=== PATIENT | female | born 1965 | race Caucasian/White ===

== ENCOUNTER → 2017-04-27 | Outpatient (CLI) | payer BC ==
[2017-04-27 10:49] LABS: Appearance,Urine Cloudy (Clear); Bilirubin,Urine Negative (Negative); Blood,Urine Small (Negative); Color,Urine Yellow; Glucose,Urine (UA) Negative (Negative); Ketones,Urine Negative (Negative); Leukocyte Esterase,Urine Large (Negative); Mucus,Urine Rare /hpf; Nitrite,Urine Negative (Negative); PH, Urine 5.5 (5.0-8.0); Protein,Urine Negative (Negative); RBC,Urine 6 /hpf (0-5); Squamous Epithelial Cell,Urine 7 /hpf (0-4); Urobilinogen,Urine <2.0 mg/dL (<2.0); WBC,Urine 10 /hpf (0-5)
--- NOTE | 2017-04-27 11:19 | WWHP ---
[facility] - HISTORY AND PHYSICAL CHIEF COMPLAINT: The patient is here for her routine gynecologic exam and mammogram. HPI: This is a 51-year-old G0 with a LMP of 04/17/2017. The patient's states her periods have become less frequent. Prior to her LMP, she had been amenorrheic for about 6 months. Prior to that she was having menses about once per month. She states her hot flashes have increased during the past year. She has also been experiencing some pelvic pressure around the area of her bladder. She also has to urinate up to 5 times per night. She denies dysuria. She denies significant urinary urgency after voiding. PAST MEDICAL HISTORY: Migraine headaches and anxiety. MEDICATIONS: 1. Zoloft 50 mg daily. 2. Xanax 0.5 mg 2 times per week. 3. Butalbital p.r.n. for migraine headaches. ALLERGIES: To aspirin and medical dye. PAST SURGICAL HISTORY: Nasal surgery in 1998, arthroscopic knee surgeries in 2007 and 2008 and 2015. 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 She has no other history of STDs. SOCIAL HISTORY: She denies tobacco and drug use and has 0 to 1 alcohol-containing drinks per month. 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 FAMILY HISTORY: Unchanged from 03/17/2016 H and P. REVIEW OF SYSTEMS: She has gained about 11 pounds over the last year. She denies respiratory, cardiac or GI problems. PHYSICAL EXAM: Blood pressure 100/67, height 5 feet 8 inches, weight 201 pounds. BMI 31. Temperature 97.7, pulse 67. This is a well-developed, well-nourished, white female, who is alert and oriented x3, in no acute distress. HEENT is within normal limits. NECK: Supple without mass or thyromegaly. CHEST AND LUNGS: Clear to auscultation. HEART: Regular rate and rhythm. Breasts are without masses or discharge. Axillary exam is negative for adenopathy. BACK: Negative for CVA tenderness. ABDOMEN: Soft, nontender, without palpable masses. PELVIC EXAM: Normal external genitalia. Cervix and vagina appear normal. There is no evidence of prolapse. The uterus is mid position, nongravid size and nontender. There are no palpable adnexal masses or tenderness. RECTAL EXAM: Negative for mass or tenderness and is negative for occult blood. EXTREMITIES: Nontender. IMPRESSION: 1. 51-year-old female with normal gynecologic exam. 2. History of primary infertility. 3. Perimenopause with oligomenorrhea and vasomotor symptoms. 4. Pelvic discomfort in the area of her bladder without any significant physical findings at this time. PLAN: 1. Pap smear was performed. 2. Self breast examination was discussed. 3. Mammogram will be done today. 4. UA and C&S will be obtained today. 5. The patient will continue to keep a menstrual calendar and call if she is having menstrual problems. 6. Osteoporosis prevention was discussed. 7. She will return in 1 year. MMODL / IJN: [id number] /
--- NOTE | 2017-04-28 09:35 | MM ---
Reason for exam: screening (asymptomatic). Last mammogram was performed 1 year and 1 month ago. History: Family history of breast cancer in mother. Physical Findings: A clinical breast exam by your physician is recommended on an annual basis and results should be correlated with mammographic findings. MG Screening Mammo w CAD Bilateral CC and MLO view(s) were taken. Prior study comparison: March 17, 2016, bilateral MG screening mammo w CAD. August 01, 2015, right breast MG diagnostic mammo RT w CAD. The breast tissue is heterogeneously dense. This may lower the sensitivity of mammography. Focal asymmetry increased from prior on right CC view. This finding is changed when compared with previous exams. ASSESSMENT: Incomplete: need additional imaging evaluation, BI-RAD 0 RECOMMENDATION: Special view mammogram of the right breast. If lesion persists on supplemental views, image directed ultrasound is recommended. [facility] will attempt to contact patient to return for supplemental views and ultrasound if indicated.
== END | disposition home or self-care (01) ==
LOC: WWCWWP 08:58
PROVIDERS: ATTEND Obstetrics & Gynecology
DX: Z12.31 Encounter for screening mammogram for malignant neoplasm of breast (principal); R10.2 Pelvic and perineal pain
CPT/HCPCS: 77067; 81001; 87086

== ENCOUNTER → 2017-04-29 | Outpatient (CLI) | payer BC ==
--- NOTE | 2017-04-30 09:27 | MM ---
Reason for exam: additional evaluation requested from abnormal screening. Last mammogram was performed less than 1 month ago. History: Family history of breast cancer in maternal aunt at age 50 and breast cancer in mother at age 50. Benign cyst aspiration, 2012. Physical Findings: Nurse Summary: 1cm nodule in the right breast at 3 o'clock, 4 o'clock and 6 o'clock, a 1.5cm in the left breast at 6 o'clock (nurse mj). MG Work Up Mamm w CAD RT Spot compression CC, spot compression MLO, and LM view(s) were taken of the right breast. Prior study comparison: April 27, 2017, bilateral MG screening mammo w CAD. March 17, 2016, bilateral MG screening mammo w CAD. The breast tissue is heterogeneously dense. This may lower the sensitivity of mammography. There is no discrete abnormality at BB marker palpable abnormalities. Ultrasound palpable abnormalities. No significant new findings when compared with previous films. These results were verbally communicated with the patient and result sheet given to the patient on 04/29/17. ASSESSMENT: Benign, BI-RAD 2 RECOMMENDATION: Return to routine screening mammogram schedule for both breasts. Manage on a clinical basis with regard to palpable abnormalities. Follow up ultrasound of the right breast in 6 months.
--- NOTE | 2017-04-30 10:05 | USB ---
Reason for exam: additional evaluation requested from abnormal screening. History: Family history of breast cancer in maternal aunt at age 50 and breast cancer in mother at age 50. Benign cyst aspiration, 2013. US Breast Workup Limited SHANELL Right breast ultrasound demonstrates a 0.5 x 0.2 x 0.4cm oval, cystic lesion at 2 o'clock, a 0.3 x 0.2 x 0.3cm lesion too small to characterize at 3 o'clock and a 0.5 x 0.4 x 0.5cm mixed lesion at 6 o'clock for which a short term follow up is recommended. Left breast ultrasound demonstrates a 0.3 x 0.3 x 0.3cm lesion too small to characterize at 3 o'clock and a 0.4 x 0.2 x 0.3cm lesion too small to characterize at 6 o'clock. These results were verbally communicated with the patient and result sheet given to the patient on 04/29/17. ASSESSMENT: Probably benign, BI-RAD 3 RECOMMENDATION: Ultrasound of the right breast in 6 months.
== END | disposition home or self-care (01) ==
LOC: RADMAMWWP 13:12
PROVIDERS: ATTEND Obstetrics & Gynecology
DX: R92.8 Other abnormal and inconclusive findings on diagnostic imaging of breast (principal)
CPT/HCPCS: 77065

== ENCOUNTER → 2017-10-04 | Outpatient (CLI) | payer BC ==
--- NOTE | 2017-10-04 08:39 | US ---
EXAMINATION TYPE: US abdomen complete DATE OF EXAM: 10/04/2017 COMPARISON: NONE CLINICAL HISTORY: R10.84 gen abd pain. Indigestion, bloating, nausea, RUQ pain x 6 weeks EXAM MEASUREMENTS: Liver Length: 17.2 cm Gallbladder Wall: 0.3 cm CBD: 0.34 cm Spleen: 10.2 cm Right Kidney: 10.1 x 4.4 x 4.7 cm Left Kidney: 10.0 x 6.5 x 5.2 cm Technical limitations due to large amount of overlying bowel content Pancreas: limited evaluation due to overlying bowel content, possible duct = 0.4cm Liver: attenuating, heterogeneous, slightly prominent in size. Normal less than 15.5 cm. Findings ca n be related to mild fatty infiltration liver. Gallbladder: no evidence of stones. Gallbladder wall is thickened. Evidence for sonographic Shirley's sign: no CBD: appears wnl Spleen: appears wnl Right Kidney: no evidence of hydronephrosis Left Kidney: no evidence of hydronephrosis Upper IVC: appears wnl Abd Aorta: visualized portions appear wnl IMPRESSION: 1. Mild hepatomegaly with mild fatty infiltration liver. 2. Thickened gallbladder wall. No cholelithiasis or pericholecystic fluid is evident.
== END ==
LOC: RADUSWWP 06:53
PROVIDERS: ATTEND Internal Medicine
DX: K76.0 Fatty (change of) liver, not elsewhere classified (principal); K82.9 Disease of gallbladder, unspecified; Z88.6 Allergy status to analgesic agent; Z88.1 Allergy status to other antibiotic agents
CPT/HCPCS: 76700

== ENCOUNTER → 2017-11-05 | Outpatient (CLI) | payer BC ==
--- NOTE | 2017-11-08 09:00 | USB ---
Reason for exam: follow-up at short interval from prior study. History: Family history of breast cancer in maternal aunt at age 50 and breast cancer in mother at age 50. Benign cyst aspiration, 2013. Physical Findings: Nurse did not find any significant physical abnormalities on exam. US Breast RT Right complete breast ultrasound includes all four quadrants, the retroareolar region and axilla. Finding demonstrates several cystic lesions measuring 0.3 x 0.3 x 0.2cm at 1 o'clock, 0.4 x 0.4 x 0.2cm at 2 o'clock, 0.5 x 0.4 x 0.2cm at 3 o'clock, 0.3 x 0.3 x 0.2cm at 5 o'clock, 0.4 x 0.3 x 0.2cm at 10 o'clock and 0.4 x 0.4 x 0.2cm at 11 o'clock. These results were verbally communicated with the patient and result sheet given to the patient on 11/05/17. ASSESSMENT: Benign, BI-RAD 2 RECOMMENDATION: Return to routine screening mammogram schedule for both breasts.
== END | disposition home or self-care (01) ==
LOC: RADUSWWP 15:28
PROVIDERS: ATTEND Obstetrics & Gynecology
DX: R92.8 Other abnormal and inconclusive findings on diagnostic imaging of breast (principal)

== ENCOUNTER → 2018-02-16 | Outpatient (CLI) | payer BC ==
[2018-02-16 09:24] VITALS: BP 115/57; PULSE 84; TEMP 96.5; BMI 31.0
--- NOTE | 2018-02-16 10:19 | P.HPOB ---
History of Present Illness H&P Date: 02/16/18 Chief Complaint: The patient is here for her routine gynecologic exam. This is a 52-year-old G0 with an LMP of 04/19/2017. The patient states her hot flashes seem to be increasing and they can be up to every 20 minutes. She is complaining of some urinary frequency associated with bladder pressure and urgency. She is otherwise without complaints. Review of Systems She is getting about 3 pounds over the last 10 months. She denies respiratory, cardiac, or G.I. problems. : urinary frequency and bladder pressure with urgency as in the HPI.. She also states her urine can appear orange in color at times. Past Medical History Past Medical History: GERD/Reflux Additional Past Medical History / Comment(s): hx. heart murmur, migraine headaches, has growth on spleen-dr monitoring, Reynaud's, Sjogren's. PAST EDITING INTERN HISTORY: she has a long history of primary infertility and was treated for chlamydia in 2001 she has no other history of STDs. History of Any Multi-Drug Resistant Organisms: None Reported Past Surgical History: Orthopedic Surgery (Multiple arthroscopic knee surgeries) Additional Past Surgical History / Comment(s): nasal fx. repair, arthroscopy knees. Colonoscopy 2014. 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 - Past Family History Mother Family Medical History: Cancer (Breast, bladder, uterine, and ovarian cancer) Father Family Medical History: Cancer (Bladder cancer) Brother(s) Family Medical History: Diabetes Mellitus Additional Family Medical History / Comment(s): A cousin had pancreatic cancer. Medications and Allergies Home Medications Medication Instructions Recorded Confirmed Type ALPRAZolam [Xanax] mg PO Q24HR 02/16/18 History Ezetimibe [Zetia] PO DAILY 02/16/18 History Hydrocodone/Acetaminophen [[place] PO Q4-6H 02/16/18 History 10-325 Tablet] Ibuprofen [Motrin] PO Q8HR 02/16/18 History Naproxen Sodium [Aleve] PO PRN 02/16/18 History Ondansetron [Zofran] PO PRN 02/16/18 History Ranitidine HCl [Zantac] 150 mg PO BID 02/16/18 02/16/18 History Sertraline [Zoloft] PO DAILY 02/16/18 History Soy Isofla/Blk Cohosh/Mag Bark HS 02/16/18 History [Estroven 155 mg Capsule] Allergies Allergy/AdvReac Type Severity Reaction Status Date / Time aspirin Allergy swelling,ringing Verified 02/16/18 09:20 in ears egg Allergy Swelling Verified 02/16/18 09:20 Iodinated Contrast- Oral and Allergy Rash/Hives Verified 02/16/18 09:20 IV Dye [Iodinated Contrast Media - IV Dye] Exam Vital Signs Temp Pulse BP 02/16/18 09:20 96.5 F L 84 115/57 Intake and Output 02/15/18 02/16/18 02/16/18 22:59 06:59 14:59 Other: Weight 92.533 kg Height 5'8", weight 204 pounds, BMI 31.0. This is a well-developed well-nourished white female who is alert and oriented times 3 in no acute distress. HEENT: Within normal limits. NECK: Supple without mass or thyromegaly. CHEST AND LUNGS: Clear to auscultation. HEART: Regular rate and rhythm. BREASTS: Are without mass or discharge. AXILLARY EXAM: Negative for adenopathy. BACK: Negative for CVA tenderness. ABDOMEN: Soft, nontender, without palpable masses. PELVIC EXAM: Normal external genitalia. Cervix and vagina appear normal. There is no unusual discharge. There is no evidence of prolapse. The uterus is midposition, nongravid size and nontender. There are no palpable adnexal masses or tenderness. RECTAL EXAM: rectovaginal exam is negative for mass or tenderness and is negative for occult blood. EXTREMITIES: Nontender. IMPRESSION: 1. 52-year-old perimenopausal female with oligomenorrhea and these are motor symptoms with normal gynecologic exam. 2. Urinary symptoms including urinary frequency and bladder pressure with urgency. PLAN: 1. Pap smear was deferred since she had a normal one less than 2 years ago. 2. Self breast awareness was discussed with the patient. 3. Screening mammogram will be due in April 2018. 4. Clean catch midstream urinalysis and culture with sensitivity has been obtained. 5. I have recommended a yearly pelvic ultrasound because of her mother's family history and the order slip was given to the patient for this. 6. She believes she is due for a colonoscopy since she was told to have done after 3 years. She will contact Dr. Cortes's office for this. 7. I recommended that she established with a urologist. This is because of her parents history of bladder cancer. She states she will consider establishing with Dr. Fitzgerald, her parents urologist to determine if she should be doing anything because of her family history. 8. She'll keep up menstrual calendar and call if she is having menstrual problems or if she has any vaginal bleeding after 12 months of amenorrhea. 9. She will return in one year.
[2018-02-16 14:44] LABS: Appearance,Urine Clear (Clear); Bilirubin,Urine Negative (Negative); Blood,Urine Negative (Negative); Color,Urine Yellow; Glucose,Urine (UA) Negative (Negative); Ketones,Urine Negative (Negative); Leukocyte Esterase,Urine Negative (Negative); Nitrite,Urine Negative (Negative); Protein,Urine Trace (Negative); Specific Gravity,Urine 1.023 (1.001-1.035); Urobilinogen,Urine <2.0 mg/dL (<2.0)
== END | disposition home or self-care (01) ==
LOC: WWCWWP 08:48
PROVIDERS: ATTEND Obstetrics & Gynecology
DX: R35.0 Frequency of micturition (principal); R39.15 Urgency of urination
CPT/HCPCS: 81003; 87086

== ENCOUNTER → 2018-03-11 | Outpatient (CLI) | payer BC ==
--- NOTE | 2018-03-11 15:27 | US ---
EXAMINATION TYPE: US pelvis complete transvag DATE OF EXAM: 03/11/2018 COMPARISON: Prior pelvic ultrasound February 08, 2015 CLINICAL HISTORY: Z80.41 HX OVARIAN CYST. Family history of ovarian cancer, spotting, history of fibr oids TECHNIQUE: Transvaginal (TV) and Transabdominal (TA) . Transabdominal sonographic images of the pel vis were acquired. Transvaginal sonographic images were medically necessary to better assess the fol lowing anatomy: uterus and ovaries Date of LMP: unknown EXAM MEASUREMENTS: Uterus: 7.4 x 4.4 x 4.6 cm Endometrial Stripe: 0.3 cm Right Ovary: unable to visualize Left Ovary: unable to visualize 1. Uterus: Retroverted heterogeneous in appearance, fibroids noted with largest = 1.9 x 2.0 x 1.8cm 2. Endometrium: appears wnl as visualized 3. Right Ovary: Obscured by overlying bowel gas 4. Left Ovary: Obscured by overlying bowel gas 5. Bilateral Adnexa: appears wnl 6. Posterior cul-de-sac: wnl Heterogeneous retroverted uterus is seen with lobulation and somewhat ill-defined heterogeneous poste rior intramural and subserosal fibroids marked by technologist measuring up to 2.0 cm in size. IMPRESSION: Heterogeneous probable fibroid uterus. Suspected fibroid lesions can be better characteri zed and described with pelvic MRI if desired.
--- NOTE | 2018-03-15 13:03 | P.PN ---
Progress Note - Text Progress Note Date: 03/15/18 OUTPATIENT FOLLOW-UP NOTE TEST(S)/RESULTS: pelvic ultrasound on 03/11/2018 shows a small uterine fibroids approximate 2 cm size. Bilateral adnexa is within normal limits. METHOD OF NOTIFICATION: the patient was notified by phone. PATIENT COMMENTS: the patient was not aware of the small uterine fibroid. DIAGNOSIS: small uterine fibroids and no evidence of ovarian mass. DISCUSSION: we discussed the benign nature of uterine fibroids. No further workup is needed for this at this time. PLAN: yearly pelvic ultrasound because of her family history of ovarian cancer in her mother. She will return in one year for her annual well woman exam.
== END | disposition home or self-care (01) ==
LOC: RADUSWWP 14:06
PROVIDERS: ATTEND Obstetrics & Gynecology
DX: Z12.73 Encounter for screening for malignant neoplasm of ovary (principal); Z80.41 Family history of malignant neoplasm of ovary
CPT/HCPCS: 76830; 76856

== ENCOUNTER → 2018-04-09 | Outpatient (CLI) | payer BC ==
--- NOTE | 2018-04-12 07:44 | MM ---
Reason for exam: screening (asymptomatic). Last mammogram was performed 11 months ago. History: Family history of breast cancer in maternal aunt at age 50 and breast cancer in mother at age 50. Benign cyst aspiration, 2013. Physical Findings: A clinical breast exam by your physician is recommended on an annual basis and results should be correlated with mammographic findings. MG 3D Screening Mammo W/Cad Bilateral CC and MLO view(s) were taken. XCCL view(s) were taken of the left breast. Prior study comparison: April 29, 2017, right breast MG work up mamm w CAD RT. April 27, 2017, bilateral MG screening mammo w CAD. The breast tissue is heterogeneously dense. This may lower the sensitivity of mammography. Typically benign punctate calcifications superior left breast. No significant changes when compared with prior studies. ASSESSMENT: Negative, BI-RAD 1 RECOMMENDATION: Routine screening mammogram of both breasts in 1 year.
== END ==
LOC: RADMAMWWP 08:53
PROVIDERS: ATTEND Obstetrics & Gynecology
DX: Z12.31 Encounter for screening mammogram for malignant neoplasm of breast (principal)
CPT/HCPCS: 77063; 77067

== ENCOUNTER → 2018-12-27 | Outpatient (CLI) | payer BC ==
[2018-12-28 01:28] LABS: T4, Free (Free Thyroxine) 1.1 ng/dL (0.80-1.80)
== END | disposition home or self-care (01) ==
LOC: LABWHC1 16:44
PROVIDERS: ATTEND Nurse Practitioner Family
DX: R41.3 Other amnesia (principal)
CPT/HCPCS: 36415; 82607; 84439; 84443; 84481

== ENCOUNTER → 2020-03-28 | Outpatient (CLI) | payer BC ==
[2020-03-28 12:54] VITALS: BP 106/69; PULSE 93; RESP 18; TEMP 98.5
--- NOTE | 2020-03-28 13:33 | P.GSHP ---
History of Present Illness H&P Date: 03/28/20 Chief Complaint: Abnormal left breast mammogram Sade is a 54-year-old white female seen in consultation for Dr. Paloma Aldridge regarding a mammographic abnormality in her left breast. She underwent a bilateral mammogram on 03/13/2020 which revealed a nodular density in the outer margin of the left breast. A diagnostic mammogram of the left breast was performed on . The questioned far posterior and lateral asymmetric density was not clearly reproduced and a precautionary six-month follow-up was recommended. The patient does not feel anything in her breast. She is not complaining of any nipple discharge or skin changes. She has no history of any trauma or infection in the breast. Caffeine: rare smoke: none Theophylline: Daily soy milk: twice a week Family history: mother: breast cancer 6 times, from bladder cancer, ovarian cancer, uterine cancer (did not have genetic testing done) father: bladder cancer maternal aunt: ovarian cancer at 40 cousin maternal side: at 21 with cancer ? 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 Plantars fasciitis Carpal tunnel disease Connective tissue disease anxiety/depression Sjogren syndrome Overnight syndrome Migraines insomnia high cholesterol Social History: smoke: none alcohol: rare drugs: none - Constitutional Comment: hot flashes Constitutional: Denies chills, Denies fever - EENT Eyes: denies blurred vision, denies pain Ears: bilateral: tinnitus, deny: decreased hearing Ears, nose, mouth and throat: Reports headache, Denies sore throat - Breasts Breasts: bilateral: as per HPI - Cardiovascular Cardiovascular: Denies chest pain, Denies shortness of breath - Respiratory Respiratory: Denies cough, Denies 7 - Gastrointestinal Gastrointestinal: Denies abdominal pain, Denies diarrhea, Denies nausea, Denies vomiting - Genitourinary (Female) Genitourinary: Denies dysuria, Denies hematuria - Menstruation Menstruation: Reports postmenopausal - Musculoskeletal Musculoskeletal: Reports as per HPI - Integumentary Integumentary: Denies pruritus, Denies rash - Neurological Neurological: Reports numbness, Denies weakness - Psychiatric Psychiatric: Reports anxiety, Reports depression - Endocrine Comment: weight gain Endocrine: Reports weight change - Hematologic/Lymphatic Comment: none - Allergic/Immunologic Allergic/Immunologic: Reports seasonal allergies Past Medical History Past Medical History: GERD/Reflux Additional Past Medical History / Comment(s): hx. heart murmur, migraine headaches, has growth on spleen-dr monitoring, Reynaud's, Sjogren's. 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 History of Any Multi-Drug Resistant Organisms: None Reported Past Surgical History: Orthopedic Surgery Additional Past Surgical History / Comment(s): nasal fx. repair, arthroscopy knees. Colonoscopy 2015. Past Anesthesia/Blood Transfusion Reactions: No Reported Reaction Past Psychological History: Anxiety Smoking Status: Never smoker Past Alcohol Use History: Rare Past Drug Use History: None Reported - Past Family History Mother Family Medical History: Cancer Father Family Medical History: Cancer Brother(s) Family Medical History: Diabetes Mellitus Additional Family Medical History / Comment(s): A cousin had pancreatic cancer. Medications and Allergies Home Medications Medication Instructions Recorded Confirmed Type ALPRAZolam [Xanax] mg PO Q24HR 02/16/18 History Ezetimibe [Zetia] PO DAILY 02/16/18 History Hydrocodone/Acetaminophen [[place] PO Q4-6H 02/16/18 History 10-325 Tablet] Ranitidine HCl [Zantac] 150 mg PO BID 02/16/18 02/16/18 History Sertraline [Zoloft] PO DAILY 02/16/18 History ARIPiprazole [Abilify] 5 mg PO DAILY 03/28/20 03/28/20 History Baclofen [Lioresal] 20 mg PO TID 03/28/20 03/28/20 History Diclofenac Sodium [Diclofenac 100 mg PO DAILY 03/28/20 03/28/20 History Sodium ER] Fluticasone Propionate [Flonase 1 spray EA NOSTRIL DAILY PRN 03/28/20 03/28/20 History Allergy Relief] Meloxicam [Mobic] 15 mg PO DAILY 03/28/20 03/28/20 History NIFEdipine [NIFEdipine ER] 30 mg PO DAILY 03/28/20 03/28/20 History Phentermine HCl [Adipex-P] 37.5 mg PO [id number] 03/28/20 03/28/20 History Pilocarpine HCl [Salagen] 5 mg PO TID 03/28/20 03/28/20 History Tobra-Dexamet 0.3-0.1% Eye Vy 2 drops BOTH EYES Q6H 03/28/20 03/28/20 History [Tobradex Ophth Susp] Allergies Allergy/AdvReac Type Severity Reaction Status Date / Time aspirin Allergy swelling,ringing Verified 03/28/20 12:51 in ears azithromycin Allergy Unknown Unverified 03/28/20 12:51 [From Zithromax Z-Shola] egg Allergy Swelling Verified 03/28/20 12:51 Iodinated Contrast Media Allergy Rash/Hives Verified 03/28/20 12:51 [Iodinated Contrast Media - IV Dye] Surgical - Exam Vital Signs Temp Pulse Resp BP Pulse Ox 98.5 F 93 18 106/69 100 03/28/20 12:52 03/28/20 12:52 03/28/20 12:52 03/28/20 12:52 03/28/20 12:52 BMI 32.1 - General well developed, well nourished, no distress - Eyes normal ocular movement - ENT normal nares - Neck trachea midline - Respiratory normal respiratory effort, clear to auscultation - Cardiovascular Rhythm: regular Heart Sounds: normal: S1, S2 - Abdomen Abdomen: soft, non tender, no guarding, no rigid, no rebound - Integumentary normal turgor - Neurologic no disoriented, no combative - Musculoskeletal uses a leg brace and a cane - Psychiatric oriented to time, oriented to person, oriented to place, speech is normal, memory intact breast exam: BRA: 40C inspection: bilateral ptosis grade 1 Palpation: Right breast: Multi-positional exam fibrocystic changes no dominant masses or nodules of concern Right axilla: No adenopathy of concern Left breast: Fibrocystic changes a multi-positional exam no dominant masses or nodules of concern Left axilla: No adenopathy of concern Results Mammogram performed on [id number] questionable nodule in the left breast this was performed repeated as a diagnostic mammogram on [id number] this was felt to be probably benign and six-month follow-up of the left breast was recommended Assessment and Plan Assessment: Impression: fatty liver 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 Repeat left breast mammogram in 6 months 2. Patient will call sooner if she notes any thing of concern 3. Consider genetic counseling secondary to strong family history of cancer we will give her the information to set this appointment up CC: Dr. Aldridge I have personally reviewed her mammograms with Dr. Farah from radiology. At this point we do not see any specific lesion which would warrant interventional biopsy. I talked to her regarding her strong family history and recommended genetic counseling. She was provided information to contact, this cancer [place] genetic counseling service. She will make that decision. If she has any questions or concerns she will call us sooner otherwise I'll see her in 6 months. encounter 30 minutes, > 50% of time in planning and counselling
== END | disposition home or self-care (01) ==
LOC: WWCWWP 12:10
PROVIDERS: ATTEND Surgery
DX: Z53.9 Procedure and treatment not carried out, unspecified reason (principal)

== ENCOUNTER → 2020-09-16 | Outpatient (CLI) | payer MEDICARE ==
--- NOTE | 2020-09-16 13:26 | MM ---
Reason for exam: follow-up at short interval from prior study. Last mammogram was performed 2 years and 5 months ago. History: Patient is postmenopausal. Family history of breast cancer in maternal aunt at age 50 and breast cancer in mother at age 50. Benign cyst aspiration of the left breast, 2012. Physical Findings: Nurse did not find any significant physical abnormalities on exam. MG 3D Diag Mammo W/Cad LT CC, MLO, and XCCL view(s) were taken of the left breast. Prior study comparison: April 09, 2018, bilateral MG 3d screening mammo w/cad. April 29, 2017, right breast MG work up mamm w CAD RT. The breast tissue is heterogeneously dense. This may lower the sensitivity of mammography. Focal density left lateral breast at posterior depth. Probably benign asymmetry/overlap tissues. These results were verbally communicated with the patient and result sheet given to the patient on 09/16/20. ASSESSMENT: Probably benign, BI-RAD 3 RECOMMENDATION: Follow-up diagnostic mammogram of both breasts in 6 months. Back on schedule.
== END | disposition home or self-care (01) ==
LOC: RADMAMWWP 07:04
PROVIDERS: ATTEND Surgery
DX: R92.8 Other abnormal and inconclusive findings on diagnostic imaging of breast (principal); Z78.0 Asymptomatic menopausal state; Z80.3 Family history of malignant neoplasm of breast
CPT/HCPCS: 77065; G0279; 77061

== ENCOUNTER → 2020-09-20 | Outpatient (CLI) | payer BC ==
[2020-09-20 11:54] VITALS: BP 101/70; PULSE 112; RESP 16; TEMP 98
--- NOTE | 2020-09-20 12:03 | P.PN ---
Subjective Progress Note Date: 09/20/20 Principal diagnosis: Surveillance fibrocystic breast changes Sade is a 54-year-old white female seen in consultation for Dr. Paloma Aldridge regarding a mammographic abnormality in her left breast. She underwent a bilateral mammogram on 03/13/2020 which revealed a nodular density in the outer margin of the left breast. A diagnostic mammogram of the left breast was performed on [id number]. The questioned far posterior and lateral asymmetric density was not clearly reproduced and a precautionary six-month follow-up was recommended. The patient does not feel anything in her breast. She is not complaining of any nipple discharge or skin changes. She has no history of any trauma or infection in the breast. A repeat left breast mammogram was done on 09-16-20 which noted focal density left lateral breast posterior depth and felt to be BENIGN BIRAD 3. She had genetic testing performed on [id number] which was negative. Aneta model: 2.1% 5 year risk to develop breast cancer Beba Bhardwaj at 32.072% lifetime risk Gus model 7.32% lifetime risk Have discussed chemoprevention at this time the patient is not interested. Caffeine: rare smoke: none Theophylline: Daily soy milk: twice a week Family history: mother: breast cancer 6 times, from bladder cancer, ovarian cancer, uterine cancer (did not have genetic testing done) father: bladder cancer maternal aunt: ovarian cancer at 40 cousin maternal side: at 21 with cancer ? 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 Plantars fasciitis Carpal tunnel disease Connective tissue disease anxiety/depression Sjogren syndrome Overnight syndrome Migraines insomnia high cholesterol Social History: smoke: none alcohol: rare drugs: none - Constitutional Comment: hot flashes Constitutional: Denies chills, Denies fever - EENT Eyes: denies blurred vision, denies pain Ears: bilateral: tinnitus, deny: decreased hearing Ears, nose, mouth and throat: Reports headache, Denies sore throat - Breasts Breasts: bilateral: as per HPI - Cardiovascular Cardiovascular: Denies chest pain, Denies shortness of breath - Respiratory Respiratory: Denies cough - Gastrointestinal Gastrointestinal: Denies abdominal pain, Denies diarrhea, Denies nausea, Denies vomiting - Genitourinary (Female) Genitourinary: Denies dysuria, Denies hematuria - Menstruation Menstruation: Reports postmenopausal - Musculoskeletal Musculoskeletal: Reports as per HPI - Integumentary Integumentary: Denies pruritus, Denies rash - Neurological Neurological: Reports numbness, Denies weakness - Psychiatric Psychiatric: Reports anxiety, Reports depression - Endocrine Comment: weight gain Endocrine: Reports weight change - Hematologic/Lymphatic Comment: none - Allergic/Immunologic Allergic/Immunologic: Reports seasonal allergies Objective - Exam BMI 31.6 - Constitutional General appearance: Present: average body habitus - EENT Eyes: Present: EOMI ENT: Present: hearing grossly normal - Neck Neck: Present: normal ROM - Respiratory Respiratory: bilateral: CTA - Cardiovascular Rhythm: regular Heart sounds: normal: S1, S2 - Gastrointestinal General gastrointestinal: Present: soft - Integumentary Integumentary: Present: normal turgor - Musculoskeletal Musculoskeletal Comment(s): uses a cane - Psychiatric Psychiatric: Present: A&O x's 3, appropriate affect, intact judgment & insight - Additional findings Additional findings: Breast examination: BRA: 40D inspection: Grade 2 ptosis bilateral Palpation: Right breast: Dense breast, fibrocystic changes, no dominant masses or nodules of concern Right axilla: No adenopathy of concern Left breast: Dense breast, fibrocystic changes, no dominant masses or nodules of concern Left axilla: No adenopathy of concern Assessment and Plan Assessment: Impression: fatty liver 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 Bilateral mammogram in 6 months with physician exam at that time 2. Patient given option of chemoprevention and has declined at this time 3. Patient notes any changes sooner in her breasts would like to see her sooner CC: Dr. Ornelas
== END ==
LOC: WWCWWP 09-16 07:02
PROVIDERS: ATTEND Surgery
DX: R92.2 Inconclusive mammogram (principal); K76.0 Fatty (change of) liver, not elsewhere classified; M47.816 Spondylosis without myelopathy or radiculopathy, lumbar region; M72.2 Plantar fascial fibromatosis; G56.00 Carpal tunnel syndrome, unspecified upper limb; F41.9 Anxiety disorder, unspecified; F32.9 Major depressive disorder, single episode, unspecified; M35.00 Sjogren syndrome, unspecified; G43.909 Migraine, unspecified, not intractable, without status migrainosus; G47.00 Insomnia, unspecified; E78.00 Pure hypercholesterolemia, unspecified; Z80.3 Family history of malignant neoplasm of breast; M35.1 Other overlap syndromes; Z88.6 Allergy status to analgesic agent; Z88.1 Allergy status to other antibiotic agents; Z91.012 Allergy to eggs; Z91.041 Radiographic dye allergy status

== ENCOUNTER → 2021-04-16 | Outpatient (CLI) | payer MEDICARE ==
--- NOTE | 2021-04-16 12:18 | MM ---
Reason for exam: follow-up at short interval from prior study. Last mammogram was performed 7 months ago. History: Patient is postmenopausal. Family history of breast cancer in mother at age 50. Benign cyst aspiration of the left breast, 2012. Benign cyst aspiration of the left breast. Physical Findings: Nurse did not find any significant physical abnormalities on exam. MG 3D Diag Mammo W/Cad SHANELL Bilateral CC, MLO, and XCCL view(s) were taken. Prior study comparison: September 16, 2020, left breast MG 3d diag mammo w/cad LT. April 09, 2018, bilateral MG 3d screening mammo w/cad. The breast tissue is heterogeneously dense. This may lower the sensitivity of mammography. Stable superior posterior asymmetric density right MLO. Asymmetric density anterior lateral left CC view becomes less defined on spot 3D. These results were verbally communicated with the patient and result sheet given to the patient on 04/16/21. ASSESSMENT: Incomplete: need additional imaging evaluation, BI-RAD 0 RECOMMENDATION: Ultrasound of the left breast. (lateral)
--- NOTE | 2021-04-16 12:20 | USB ---
Reason for exam: additional evaluation requested from abnormal screening. History: Patient is postmenopausal. Family history of breast cancer in mother at age 50. Benign cyst aspiration of the left breast, 2013. Benign cyst aspiration of the left breast. US Breast Limited LT Left limited breast ultrasound including focal area of concern, retroareolar and axilla demonstrates no cystic or solid lesion seen. Scanned 12-6 o'clock. These results were verbally communicated with the patient and result sheet given to the patient on 04/16/21. ASSESSMENT: Benign, BI-RAD 2 RECOMMENDATION: Routine screening mammogram of both breasts in 1 year.
== END | disposition home or self-care (01) ==
LOC: RADMAMWWP 09:47
PROVIDERS: ATTEND Surgery
DX: N64.89 Other specified disorders of breast (principal); Z80.3 Family history of malignant neoplasm of breast; Z78.0 Asymptomatic menopausal state
CPT/HCPCS: 77066; 76642; G0279; 77062

== ENCOUNTER → 2021-05-29 | Outpatient (CLI) | payer BC, MEDICARE ==
[2021-05-29 10:18] VITALS: BP 115/75; PULSE 88; RESP 16; TEMP 98.1
--- NOTE | 2021-05-29 10:45 | P.PN ---
Subjective Progress Note Date: 05/29/21 Principal diagnosis: fibrocystic breast disease Surveillance fibrocystic breast changes Sade is a 55-year-old white female seen initially in consultation for Dr. Paloma Aldridge regarding a mammographic abnormality in her left breast. She underwent a bilateral mammogram on 03/13/2020 which revealed a nodular density in the outer margin of the left breast. A diagnostic mammogram of the left breast was performed on [id number]. The questioned far posterior and lateral asymmetric density was not clearly reproduced and a precautionary six-month follow-up was recommended. The patient does not feel anything in her breast. She is not complaining of any nipple discharge or skin changes. She has no history of any trauma or infection in the breast. A repeat left breast mammogram was done on 09-16-20 which noted focal density left lateral breast posterior depth and felt to be BENIGN BIRAD 3. Bilateral mammogram in [id number]. This revealed a stable superior posterior asymmetric density right breast. Asymmetric density anterior left breast became less defined in spite of 3-D film. Ultrasound of the left breast was recommended. Ultrasound of the left breast was performed on the same date which was felt to be benign BIRADS 2. The films were reviewed in person with Dr. Farah. The plan is for repeat bilateral mammogram in 1 year. She had genetic testing performed on which was negative. Aneta model: 3.1% 5 year risk to develop breast cancer; 22% life time risk Beba Bhardwaj at 32.07% lifetime risk last year, this year 29% Have discussed chemoprevention at this time the patient is not interested. Caffeine: rare smoke: none Theophylline: Daily soy milk: twice a week Family history: mother: breast cancer 6 times, from bladder cancer, ovarian cancer, uterine cancer (did not have genetic testing done) father: bladder cancer maternal aunt: ovarian cancer at 40 cousin maternal side: at 21 with cancer ? 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 Plantars fasciitis Carpal tunnel disease Connective tissue disease anxiety/depression Sjogren syndrome Overnight syndrome Migraines insomnia high cholesterol uses a cane secondary to spondylosis/scoliosis/complete (left knee replacement has had 6 surgeries and 2 replacements on left knee, right knee 4 surgeries and a replacement) Social History: smoke: none alcohol: rare drugs: none - Constitutional Comment: hot flashes Constitutional: Denies chills, Denies fever - EENT Eyes: denies blurred vision, denies pain Ears: bilateral: tinnitus, deny: decreased hearing Ears, nose, mouth and throat: Reports headache, Denies sore throat - Breasts Breasts: bilateral: as per HPI - Cardiovascular Cardiovascular: Denies chest pain, Denies shortness of breath - Respiratory Respiratory: Denies cough - Gastrointestinal Gastrointestinal: Denies abdominal pain, Denies diarrhea, Denies nausea, Denies vomiting - Genitourinary (Female) Genitourinary: Denies dysuria, Denies hematuria - Menstruation Menstruation: Reports postmenopausal - Musculoskeletal Musculoskeletal: Reports as per HPI - Integumentary Integumentary: Denies pruritus, Denies rash - Neurological Neurological: Reports numbness, Denies weakness - Psychiatric Psychiatric: Reports anxiety, Reports depression - Endocrine Comment: weight gain Endocrine: Reports weight change - Hematologic/Lymphatic Comment: none - Allergic/Immunologic Allergic/Immunologic: Reports seasonal allergies Objective - Vital Signs Vital signs: Vital Signs Temp 98.1 F 05/29/21 10:11 Pulse 88 05/29/21 10:11 Resp 16 05/29/21 10:11 BP 115/75 05/29/21 10:11 Pulse Ox 95 05/29/21 10:11 Intake & Output 05/28/21 05/29/21 05/29/21 18:59 06:59 18:59 Weight 95.254 kg - Exam BMI 31.9 - Constitutional General appearance: Present: cooperative - EENT Eyes: Present: EOMI ENT: Present: hearing grossly normal - Neck Neck: Present: normal ROM - Respiratory Respiratory: bilateral: CTA - Cardiovascular Rhythm: regular Heart sounds: normal: S1, S2 - Integumentary Integumentary: Present: normal turgor - Musculoskeletal Musculoskeletal Comment(s): uses a cane - Psychiatric Psychiatric: Present: A&O x's 3, appropriate affect, intact judgment & insight - Additional findings Additional findings: Breast Exam: BRA: 40C inspection: Bilateral grade 2 ptosis Palpation: Right breast: Multi-positional exam fibrocystic changes no discrete dominant masses or nodules of concern Right axilla: No adenopathy of concern Left breast: Multi-positional exam fibrocystic changes no discrete dominant masses or nodules of concern Left axilla: No adenopathy of concern Assessment and Plan Assessment: Impression: fatty liver 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 bilateral mammogram in one year with physician exam at that time 2. declined chemoprophylaxis 3. Patient is going to stop using soy products; she understands this may or may not increase the risk CC: Dr. Ornelas, Dr. Aldridge
== END ==
LOC: WWCWWP 10:01
PROVIDERS: ATTEND Surgery
DX: N60.12 Diffuse cystic mastopathy of left breast (principal); K76.0 Fatty (change of) liver, not elsewhere classified; M47.816 Spondylosis without myelopathy or radiculopathy, lumbar region; M72.2 Plantar fascial fibromatosis; G56.00 Carpal tunnel syndrome, unspecified upper limb; F41.9 Anxiety disorder, unspecified; F32.A Depression, unspecified; M35.00 Sjogren syndrome, unspecified; G43.909 Migraine, unspecified, not intractable, without status migrainosus; G47.00 Insomnia, unspecified; E78.00 Pure hypercholesterolemia, unspecified; M41.9 Scoliosis, unspecified; Z96.653 Presence of artificial knee joint, bilateral; Z88.6 Allergy status to analgesic agent; Z88.1 Allergy status to other antibiotic agents; Z91.018 Allergy to other foods; Z91.041 Radiographic dye allergy status; Z91.012 Allergy to eggs

== ENCOUNTER → 2022-04-20 | Outpatient (CLI) | payer MEDICARE ==
--- NOTE | 2022-04-21 18:13 | MM ---
Reason for Exam: Screening (asymptomatic). Last screening mammogram was performed 12 month(s) ago. Patient History: Menarche at age 14. Postmenopausal. 2012, Benign Cyst Aspiration on the left side. Benign Cyst Aspiration on the left side. Mother had breast cancer, age 50. Risk Values: Aneta 5 year model risk: 2.1%. NCI Lifetime model risk: 15.0%. Prior Study Comparison: 04/09/2018 Bilateral Screening Mammogram, [facility]. 09/16/2020 Left Diagnostic Mammogram, [facility]. 04/16/2021 Bilateral Diagnostic Mammogram, [facility]. Tissue Density: The breast tissue is heterogeneously dense. This may lower the sensitivity of mammography. Findings: Analyzed By CAD. Unchanged asymmetric density lateral subareolar left cc view. There is no suspicious group of microcalcifications or new suspicious mass in either breast. Overall Assessment: Benign, BI-RAD 2 Management: Screening Mammogram of both breasts in 1 year. 1. Patient should continue monthly self breast exams. 2. A clinical breast exam by your physician is recommended on an annual basis. 3. This exam should not preclude additional follow-up of suspicious palpable abnormalities. Electronically signed and approved by: Radha Farah M.D. Radiologist
== END | disposition home or self-care (01) ==
LOC: RADMAMWWP 09:38
PROVIDERS: ATTEND Surgery
DX: Z12.31 Encounter for screening mammogram for malignant neoplasm of breast (principal); Z78.0 Asymptomatic menopausal state; Z80.3 Family history of malignant neoplasm of breast
CPT/HCPCS: 77063; 77067

== ENCOUNTER → 2022-05-29 | Outpatient (CLI) | payer MEDICARE ==
[2022-05-29 19:43] LABS: Chol/HDL Ratio 3.11 Ratio; LDL Cholesterol,Calculated 83.2 mg/dL (0.0-131.0)
[2022-05-29 20:23] LABS: ALT 57 U/L (8-44); AST 44 U/L (13-35); African American GFR (CKD) 86.3 (60.0-200.0); Albumin 4.6 g/dL (3.8-4.9); Albumin/Globulin Ratio 1.96 (1.60-3.17); Alkaline Phosphatase 75 U/L (41-126); Bilirubin, Conjugated <0.20 mg/dL (0.20-0.40); Blood Urea Nitrogen 13.5 mg/dL (9.0-27.0); Carbon Dioxide 23.3 mmol/L (20.0-27.5); Chloride 105 mmol/L (96-109); Globulin 2.3 g/dL (1.6-3.3); Glucose 96 mg/dL (70-110); Non-African American GFR(CKD) 74.5 (60.0-200.0); Potassium 4.6 mmol/L (3.5-5.5); Sodium 143 mmol/L (135-145); Total Protein 6.9 g/dL (6.2-8.2)
== END | disposition home or self-care (01) ==
LOC: LABWHC1 12:09
PROVIDERS: ATTEND Internal Medicine
DX: E55.9 Vitamin D deficiency, unspecified (principal); E78.5 Hyperlipidemia, unspecified; N95.1 Menopausal and female climacteric states
CPT/HCPCS: 36415; 80051; 80061; 80076; 82306; 82565; 82672; 82947; 84144; 84443; 84520

== ENCOUNTER → 2022-07-23 | Outpatient (CLI) | payer MEDICARE ==
--- NOTE | 2022-07-23 12:47 | BD ---
EXAMINATION TYPE: Axial Bone Density DATE OF EXAM: 07/23/2022 CLINICAL HISTORY: 57 years old Female. ICD-10 CODE: M85.88 DISORDER OF BONE Height: 67 Weight: 213 FRAX RISK QUESTIONS: Family History (Parent hip fracture): no fx Secondary Osteoporosis: yes 5. Chronic liver disease: yes, fatty liver RISK FACTORS HISTORY OF: History of Wrist Fracture: both wrists fxed at a youth Family History of Osteoporosis: yes, mother Postmenopausal woman: yes, at 52 yrs old Hyperparathyroidism: no Adrenal Insufficiency: no MEDICATIONS: Additional Medications: zoloft, trazodone, xanax, statin for cholesterol, vit d Additional History: anxiety, cholesterol, total knee replacements bilaterally EXAM MEASUREMENTS: Bone mineral densitometry was performed using the FANCRU System. Bone mineral density as measured about the Lumbar spine is: ----- L1-L4(G/cm2): 1.031 T Score Values are as follows: ----- L1: -1.7 ----- L2: -1.4 ----- L3: -0.8 ----- L4: -1.2 ----- L1-L4: -1.2 Z Score Values are as follows: ----- L1: -2.0 ----- L2: -1.7 ----- L3: -1.1 ----- L4: -1.5 ----- L1-L4: -1.5 Bone mineral density is a baseline study Bone mineral density about the R hip (g/cm2): 0.936 Bone mineral density about the L hip (g/cm2): 0.959 T Score values are as follows: -----R Neck: -1.4 -----L Neck: -1.1 -----R Total: -0.6 -----L Total: -0.4 Z Score values are as follows: -----R Neck: -1.1 -----L Neck: -0.7 -----R Total: -0.7 -----L Total: -0.5 Bone mineral density is a baseline study FRAX%s: The graph provided illustrates a 6.1% chance for a major osteoporotic fx and a 0.4% chance fo r the hips probability for fx in 10 years time. IMPRESSION: Osteopenia (T Score between -2.5 and -1). There is slightly increased risk of fracture and the patient may be considered for treatment. Re-Screen 2-5 years. NOTE: T-SCORE=SD OF THE YOUNG ADULT MEAN.
== END | disposition home or self-care (01) ==
LOC: RADBDWWP 11:04
PROVIDERS: ATTEND Obstetrics & Gynecology
DX: M85.89 Other specified disorders of bone density and structure, multiple sites (principal); K76.0 Fatty (change of) liver, not elsewhere classified; E78.00 Pure hypercholesterolemia, unspecified; F41.9 Anxiety disorder, unspecified; Z78.0 Asymptomatic menopausal state; Z96.653 Presence of artificial knee joint, bilateral
CPT/HCPCS: 77080

== ENCOUNTER → 2022-10-14 | Outpatient (CLI) | payer MEDICARE ==
[2022-10-14 14:34] LABS: ALT 46 U/L (4-34); AST 34 U/L (14-36); African American GFR (CKD) >90 (>60 ml/min/1.73 sqM); Albumin 4.5 g/dL (3.5-5.0); Albumin/Globulin Ratio 1.6; Alkaline Phosphatase 66 U/L (38-126); Anion Gap 6 mmol/L; Blood Urea Nitrogen 25 mg/dL (7-17); Calcium 9.6 mg/dL (8.4-10.2); Carbon Dioxide 29 mmol/L (22-30); Chloride 105 mmol/L (98-107); Globulin 2.9 g/dL; Glucose 92 mg/dL (74-99); Non-African American GFR(CKD) >90 (>60 ml/min/1.73 sqM); Potassium 4.6 mmol/L (3.5-5.1); Sodium 140 mmol/L (137-145); Total Bilirubin 0.8 mg/dL (0.2-1.3); Total Protein 7.4 g/dL (6.3-8.2)
[2022-10-14 14:37] LABS: Basophils % (A) 0 %; Eosinophils # (A) 0.2 k/uL (0-0.7); Eosinophils % (A) 4 %; HCT 46.8 % (34.0-46.0); HGB 15.2 gm/dL (11.4-16.0); Lymphocytes # (A) 1.2 k/uL (1.0-4.8); Lymphocytes % (A) 26 %; MCH 30.5 pg (25.0-35.0); MCHC 32.5 g/dL (31.0-37.0); MCV 93.9 fL (80.0-100.0); Mean Platelet Volume 8.1; Monocytes # (A) 0.4 k/uL (0-1.0); Monocytes % (A) 8 %; Neutrophils # (A) 2.7 k/uL (1.3-7.7); Neutrophils % (A) 59 %; Platelet Count 198 k/uL (150-450); RBC 4.98 m/uL (3.80-5.40); RDW 13.2 % (11.5-15.5); WBC 4.6 k/uL (3.8-10.6)
== END | disposition home or self-care (01) ==
LOC: LABWHC1 12:24
PROVIDERS: ATTEND Internal Medicine Gastroenterology
DX: R74.01 Elevation of levels of liver transaminase levels (principal)
CPT/HCPCS: 36415; 80053; 85025

== ENCOUNTER → 2022-11-19 | Outpatient (CLI) | payer MEDICARE ==
--- NOTE | 2022-11-19 12:40 | P.SLEEP ---
History of Present Illness DATE: 11/19/2022 CONSULTATION/NEW PATIENT EVALUATION HISTORY OF PRESENT ILLNESS/SLEEP-WAKE EVALUATION: 57-year-old lady had been ev aluated in the sleep center for possible obstructive sleep apnea hypopnea syndrome. SLEEP SCHEDULE: Usually sleep schedule from 3 AM until 1 PM 7 days a week. FALLING ASLEEP: Patient has problems with falling asleep, no TV in bedroom. DURING SLEEP: According patient has loud snoring. Patient wakes up from sleep 4 times with 4 episodes of nocturia. Positive history of sleep talking, restless leg symptoms, grinding teeth, sweating. No history of hypnogogical hallucinations, sleep paralysis, or cataplexy. DURING THE DAY/WAKE STATE: In the morning patient wake up tired, has episodes of depression and anxiety. Reader sleepiness scale is 0. Patient doesn't take naps. PAST MEDICAL HISTORY: Depression, anxiety, hyperlipidemia, ALLERGIES, migraine, liver cirrhosis, spondylosis. PAST SURGICAL HISTORY: Status post left knee replacement and right knee surgery, status post nasal surgery. MEDICATIONS: Zoloft, Xanax, Crestor, trazodone, [place], baclofen. SOCIAL HISTORY: Negative for smoking, alcohol consumption occasional. FAMILY HISTORY: Hypertension, heart problems, cancer, anemia. REVIEW OF SYSTEMS: Loud snoring, multiple awakenings from sleep, difficulties to initiate sleep. No fevers. No double vision. No recent chest pain. No shortness of breath. No abdominal pain. No bleeding episodes. No blood in urine. No seizure episodes. PHYSICAL EXAMINATION: GENERAL: A pleasant patient without any distress. VITAL SIGNS: BP 91/54, HR 78, RR 16, weight 194.8 pounds, height 5 foot 7-1/4 inches, body mass index 30.2, temperature 98.2, oxygen saturation at room air 98%. HEENT: PERRLA, EOMI. Evaluation of oropharynx showed tongue protrudes midline, low position of soft palate Mallampati 4. NECK: Supple. No JVD. Thyroid is not palpable. 15.25 inches in circumference. LUNGS: Clear to percussion and to auscultation. Good air exchange. No wheezing or rhonchi. HEART: S1, S2 regular. No murmurs, gallops or rubs. ABDOMEN: Soft and nontender. Bowel sounds are present. No organomegaly appreciated. EXTREMITIES: No clubbing or cyanosis. DELIVERY PERSON: Awake, alert, and oriented x3. Cranial nerves 2 to 7 intact. There is no fasciculation or atrophy noted. No focal deficits observed. ASSESSMENT: 1. Loud snoring and multiple awakenings from sleep 4 times with nocturia, extremely low position of soft palate Mallampati 4, retrognathia 23 millimeters. Obstructive sleep apnea hypopnea syndrome. 2. Difficulties to initiate sleep. Sleep delay syndrome. Psychophysiological insomnia possibly related to anxiety and depression. 3. Sleep talking. 4. Restless leg symptoms. 5 migraines. 6 . History of liver cirrhosis. 7. History of depression. 8. History of anxiety. 9 . History of spondylosis. 10. Status post left knee replacement. 11. Status post nasal surgery. 12. Status post right knee surgery. 13. ALLERGY with sinuses problems. 14. Mild obesity by body mass index 30.2. PLAN: 1. Polysomnography for evaluation of patient's breathing during sleep. 2. CPAP/BiPAP titration if sleep study confirms obstructive sleep apnea- hypopnea syndrome. 3. Preferable position during sleep on the side. 4. No driving if patient feels any sleepiness. Patient is aware of civil and criminal liability for unsafe driving. 5. Sleep hygiene with regular sleep time for at least 7.5-8 hours. 6. Watching weight. 7. Exposure to the bright light in the morning and avoiding bright light and blue light (TV, computer, telephone ) in the evening. Thank you very much for referring this patient for consultation. Sincerely, Ascencion Perry MD, PhD, FAASM. Diplomat of [place] [employer], Sleep Medicine Board by [place] [employer] [place] [employer] [facility] [place] Past Medical History Past Medical History: GERD/Reflux Additional Past Medical History / Comment(s): hx. heart murmur, migraine headaches, has growth on spleen-dr monitoring, Reynaud's, Sjogren's. PAST FORGE TENDER HISTORY: she has a long history of primary infertility and was treated for chlamydia in 2001 she has no other history of STDs. History of Any Multi-Drug Resistant Organisms: None Reported Past Surgical History: Orthopedic Surgery Additional Past Surgical History / Comment(s): nasal fx. repair, arthroscopy knees. Colonoscopy 2014. Past Anesthesia/Blood Transfusion Reactions: No Reported Reaction Past Psychological History: Anxiety Smoking Status: Never smoker Past Alcohol Use History: Rare Past Drug Use History: None Reported - Past Family History Mother Family Medical History: Cancer Father Family Medical History: Cancer Brother(s) Family Medical History: Diabetes Mellitus Additional Family Medical History / Comment(s): A cousin had pancreatic cancer. Medications and Allergies Home Medications Medication Instructions Recorded Confirmed Type ALPRAZolam [Xanax] 0.5 mg PO PC-LUNCH 02/16/18 06/26/22 History Hydrocodone/Acetaminophen [[place] 1 tab PO TID 02/16/18 06/26/22 History 10-325 Tablet] Sertraline [Zoloft] 100 mg PO DAILY 02/16/18 06/26/22 History Baclofen [Lioresal] 20 mg PO BID 03/28/20 06/26/22 History Rosuvastatin Calcium [Crestor] 10 mg PO HS 09/20/20 06/26/22 History Furosemide [Lasix] 10 mg PO DAILY 06/26/22 06/26/22 History Allergies Allergy/AdvReac Type Severity Reaction Status Date / Time aspirin Allergy swelling,ringing Verified 06/26/22 12:32 in ears azithromycin Allergy Unknown Unverified 06/26/22 12:32 [From Zithromax Z-Shola] corn Allergy Swelling Verified 06/26/22 12:32 egg Allergy Swelling Verified 06/26/22 12:32 Iodinated Contrast Media Allergy Rash/Hives Verified 06/26/22 12:32 [Iodinated Contrast Media - IV Dye] tomato Allergy Swelling Verified 06/26/22 12:32 wheat Allergy Swelling Verified 06/26/22 12:32 Sleep Note - Sleep Note Sleep Note: Temperature: Pulse Rate: Respiratory Rate: Blood Pressure: SpO2: Height: Weight: BMI: Neck Circumference:
== END ==
LOC: 3 N SLEEP 11:09
PROVIDERS: ATTEND Internal Medicine
DX: G47.33 Obstructive sleep apnea (adult) (pediatric) (principal); F32.A Depression, unspecified; F41.9 Anxiety disorder, unspecified; E66.9 Obesity, unspecified; Z68.30 Body mass index [BMI] 30.0-30.9, adult; M47.9 Spondylosis, unspecified; K74.60 Unspecified cirrhosis of liver; K21.9 Gastro-esophageal reflux disease without esophagitis; G43.909 Migraine, unspecified, not intractable, without status migrainosus; G25.81 Restless legs syndrome; E78.5 Hyperlipidemia, unspecified; M26.19 Other specified anomalies of jaw-cranial base relationship; Z98.890 Other specified postprocedural states; Z99.89 Dependence on other enabling machines and devices; Z88.1 Allergy status to other antibiotic agents; Z91.012 Allergy to eggs; Z91.018 Allergy to other foods; Z91.041 Radiographic dye allergy status
CPT/HCPCS: 99211

== ENCOUNTER → 2022-12-04 | Outpatient (CLI) | payer MEDICARE | END | disposition home or self-care (01) | LOC: LABWHC1 15:32 | PROVIDERS: ATTEND Internal Medicine Cardiovascular Disease | DX: I95.9 Hypotension, unspecified (principal) | CPT/HCPCS: 36415; 82533 ==

== ENCOUNTER → 2023-01-07 | Outpatient (CLI) | payer MEDICARE ==
--- NOTE | 2023-01-07 15:50 | P.PN ---
Subjective DATE: 01/07/2023 FOLLOW UP VISIT. Patient returned to sleep center for follow-up visit to discuss results of sleep study and following plan. I discuss results of sleep study with patient in details. No significant respiratory abnormalities have been documented during the sleep test. Normal oxygenation during the sleep. Sleep efficiency was slightly decreased to 79.2%. Periodic limb movements have been documented 18.8 times per hour, but without any micro-arousals. Patient has tendency to go to bed late and get up late. .[place] sleepiness scale is 10, which is borderline. MEDICATIONS:1. Zoloft 2. Xanax 3. Crestor 4. Trazodone 5. [place] During physical exam: GENERAL: A pleasant patient without any distress. VITAL SIGNS: BP 109/73, HR 84, RR 16, weight 197.6, temperature 98.2, oxygen saturation at room air 94%. HEENT: PERRLA, EOMI. NECK: Supple. No JVD. LUNGS: Clear to percussion and to auscultation. Good air exchange. No wheezing or rhonchi. HEART: S1, S2 regular. ABDOMEN: Soft and nontender. EXTREMITIES: No clubbing or cyanosis. 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 No focal deficit. Impressions: 1. No significant respiratory abnormalities have been documented during the s leep study. 2. Mild periodic limb movements have been documented, without micro-arousals. 3. Sleep delay syndrome. 4. History of depression. 5. History of anxiety. 6. History of migraines. Plan: 1. I discussed with patient psychological techniques for treatment of insomnia including stimulus control, paradoxical intentioned 2. Sleep hygiene with regular time in bed for at least 8 hours. 3. with blue light in the evening and to get exposure to the bright, preferably sunlight in the morning to help moving sleep cycle total bili time. 3 discuss possibility to use light machine during the wintertime. 4. Precautions related to driving. No driving if feel any sleepiness. Patient is aware about civil and criminal liability for unsafe driving, promised to follow recommendations. 5. Please check iron profile including ferritin level low level of iron may increase risk for periodic limb movements. SSRIs also may increase risk for periodic limb movements . 6. We discussed possibility to use pharmacotherapy for treatment of periodic limb movements, but we agreed that at the present time it is not necessary. Thank you very much for allowing me to participate in the management of your patient. Ascencion Perry MD, PhD, FAASM. Diplomat of [place] [employer], Sleep Medicine Board by [place] [employer] [facility] [place]
== END ==
LOC: 3 N SLEEP 15:01
PROVIDERS: ATTEND Internal Medicine
DX: G47.61 Periodic limb movement disorder (principal); G47.21 Circadian rhythm sleep disorder, delayed sleep phase type; F32.A Depression, unspecified; F41.9 Anxiety disorder, unspecified; Z86.69 Personal history of other diseases of the nervous system and sense organs; Z88.6 Allergy status to analgesic agent; Z91.041 Radiographic dye allergy status; Z91.018 Allergy to other foods; Z91.012 Allergy to eggs; Z88.1 Allergy status to other antibiotic agents
CPT/HCPCS: 99212

== ENCOUNTER → 2023-04-05 | Outpatient (CLI) | payer MEDICARE ==
[2023-04-05 18:52] LABS: Basophils # (A) 0.05 X 10*3/uL (0.00-0.10); Basophils % (A) 0.9 %; Eosinophils # (A) 0.26 X 10*3/uL (0.04-0.35); Eosinophils % (A) 4.9 %; HCT 46.2 % (37.2-46.3); HGB 15.2 g/dL (12.0-15.0); Lymphocytes # (A) 1.44 X 10*3/uL (0.90-5.00); Lymphocytes % (A) 27.3 %; MCH 31.5 pg (27.0-32.0); MCHC 32.9 g/dL (32.0-37.0); MCV 95.7 FL (80.0-97.0); Mean Platelet Volume 10.1 FL (9.5-12.2); Monocytes # (A) 0.51 X 10*3/uL (0.20-1.00); Monocytes % (A) 9.7 %; NRBC Per 100 WBC 0 X 10*3/uL (0.00-0.01); Neutrophils # (A) 2.98 X 10*3/uL (1.80-7.70); Neutrophils % (A) 56.6 %; Platelet Count 249 X 10*3/uL (140-440); RBC 4.83 X 10*6/uL (4.10-5.20); RDW 12.9 % (11.5-14.5); WBC 5.27 X 10*3/uL (4.50-10.00)
[2023-04-05 19:23] LABS: Hepatitis B Surface Antigen Nonreactive; Hepatitis C IgG Antibody Nonreactive
[2023-04-05 19:35] LABS: Ceruloplasmin 24.9 mg/dL (20.0-60.0)
[2023-04-05 23:46] LABS: % Iron Saturation 31.16 (12.00-45.00); ALT 48 U/L (8-44); AST 39 U/L (13-35); Albumin 4.6 g/dL (3.8-4.9); Albumin/Globulin Ratio 1.84 Ratio (1.60-3.17); Alkaline Phosphatase 70 U/L (41-126); BUN/Creat Ratio 20.44 Ratio (12.00-20.00); Blood Urea Nitrogen 18.4 mg/dL (9.0-27.0); Calcium 10.6 mg/dL (8.7-10.3); Carbon Dioxide 29.4 mmol/L (21.6-31.8); Chloride 103 mmol/L (96-109); Globulin 2.5 g/dL (1.6-3.3); Glucose 101 mg/dL (70-110); Iron 105 UG/DL (50-170); Potassium 4.6 mmol/L (3.5-5.5); Sodium 143 mmol/L (135-145); Total Bilirubin 0.6 mg/dL (0.3-1.2); Total Iron Binding Capacity 337 UG/DL (228-460); Total Protein 7.1 g/dL (6.2-8.2)
== END | disposition home or self-care (01) ==
LOC: LABWHC1 13:30
PROVIDERS: ATTEND Internal Medicine Gastroenterology
DX: K76.0 Fatty (change of) liver, not elsewhere classified (principal); R74.01 Elevation of levels of liver transaminase levels
CPT/HCPCS: 36415; 80053; 82103; 82390; 82728; 83540; 83550; 85025; 86038; 86803; 87340

== ENCOUNTER 2023-04-06 11:34 | Day surgery (SDC) | payer MEDICARE ==
[2023-04-05 08:59] VITALS: BMI 32.6
[~2023-04-06 11:34] MED LIST: LACTATED RINGERS 1,000 ML IV SCH; LIDOCAINE 1% (10MG/ML) FOR IV START INTRADERMA PRN
[2023-04-06 12:21] VITALS: RESP 16; TEMP 97.1
[2023-04-06] MEDS ORDERED: PROPOFOL 10 MG/ML 20 ML VIAL IV ONE (12:53)
--- NOTE | 2023-04-06 13:16 | P.PCN ---
Date of Procedure: 04/06/23 Procedure(s) Performed: BRIEF HISTORY: Patient is a 57-year-old pleasant white female scheduled for an elective colonoscopy as a part of evaluation of prior history of colon polyps. PROCEDURE PERFORMED: Colonoscopy. PREOPERATIVE DIAGNOSIS: History of colon polyps. IV sedation per Anesthesia. PROCEDURE: After informed consent was obtained, the patient, was brought into the endoscopy unit. IV sedation was administered by Anesthesia under continuous monitoring. Digital rectal examination was normal. Initially the Olympus CF-160 flexible video colonoscope was then inserted in the rectum, gradually advanced into the cecum without any difficulty. Careful examination was performed as the scope was gradually being withdrawn. Ileocecal valve and the appendiceal orifice were visualized and appeared normal. Prep was fair.. Mucosa of the cecum, ascending colon, transverse colon, descending colon, sigmoid colon, and rectum appeared normal. Retroflexion was performed in the rectum and no lesions were seen. The patient tolerated the procedure well. IMPRESSION: Normal-appearing colon from rectum to cecum no evidence of colorectal neoplasia. RECOMMENDATIONS: Findings of this examination were discussed with the patient as well as a family. She was advised to have a repeat surveillance colonoscopy in 10 years..
[2023-04-06 14:01] VITALS: BP 127/81; PULSE 71
== END 2023-04-06 14:00 | disposition home or self-care (01) ==
LOC: ORWHC2ENDO 11:34
PROVIDERS: ATTEND Internal Medicine Gastroenterology
DX: Z12.11 Encounter for screening for malignant neoplasm of colon (principal); E78.5 Hyperlipidemia, unspecified; G47.33 Obstructive sleep apnea (adult) (pediatric); K74.60 Unspecified cirrhosis of liver; Z88.8 Allergy status to other drugs, medicaments and biological substances; Z88.6 Allergy status to analgesic agent; Z79.899 Other long term (current) drug therapy; Z86.010 Personal history of colon polyps
CPT/HCPCS: J2704; G0121

== ENCOUNTER → 2023-04-21 | Outpatient (CLI) | payer MEDICARE ==
--- NOTE | 2023-04-21 10:01 | MM ---
Reason for Exam: Screening (asymptomatic). Last screening mammogram was performed 12 month(s) ago. Patient History: Menarche at age 14. Patient has no children. Postmenopausal. 2012, Benign Cyst Aspiration on the left side. Benign Cyst Aspiration on the left side. Mother had breast cancer, age 50. Risk Values: Aneta 5 year model risk: 2.3%. NCI Lifetime model risk: 15.5%. Prior Study Comparison: 09/16/2020 Left Diagnostic Mammogram, [facility]. 04/16/2021 Bilateral Diagnostic Mammogram, [facility]. 04/20/2022 Bilateral MG 3D screening mammo w/cad, [facility]. Tissue Density: The breast tissue is heterogeneously dense. This may lower the sensitivity of mammography. Findings: Analyzed By CAD. There is no suspicious group of microcalcifications or new suspicious mass. Overall Assessment: Negative, BI-RAD 1 Management: Screening Mammogram of both breasts in [address] [facility] will attempt to contact patient to return for supplemental views and ultrasound if indicated. Patient should continue monthly self-breast exams. A clinical breast exam by your physician is recommended on an annual basis. This exam should not preclude additional follow-up of suspicious palpable abnormalities. Note on Aneta scores and lifetime risk: 1. A Aneta score greater than 3% is considered moderate risk. If this is the case, consider specialist referral to assess eligibility for a risk reducing agent. 2. If overall lifetime risk for the development of breast cancer is 20% or higher, the patient may qualify for future screening with alternating mammogram and breast MRI. Electronically signed and approved by: Bernardo Monson DO
== END | disposition home or self-care (01) ==
LOC: RADMAMWWP 08:45
PROVIDERS: ATTEND Surgery
DX: Z12.31 Encounter for screening mammogram for malignant neoplasm of breast (principal); Z78.0 Asymptomatic menopausal state; Z80.3 Family history of malignant neoplasm of breast
CPT/HCPCS: 77063; 77067

== ENCOUNTER → 2023-04-29 | Outpatient (CLI) | payer MEDICARE ==
[2023-04-29 13:48] VITALS: BP 107/73; PULSE 92; RESP 18; TEMP 98.6
--- NOTE | 2023-04-29 14:16 | P.PN ---
Subjective Progress Note Date: 04/29/23 Surveillance fibrocystic breast changes Sade is a 55-year-old white female seen initially in consultation for Dr. Paloma Aldridge regarding a mammographic abnormality in her left breast. She underwent a bilateral mammogram on 03/13/2020 which revealed a nodular density in the outer margin of the left breast. A diagnostic mammogram of the left breast was performed on 765810. The questioned far posterior and lateral asymmetric density was not clearly reproduced and a precautionary six-month follow-up was recommended. The patient does not feel anything in her breast. She is not complaining of any nipple discharge or skin changes. She has no history of any trauma or infection in the breast. A repeat left breast mammogram was done on 09-16-20 which noted focal density left lateral breast posterior depth and felt to be BENIGN BIRAD 3. Bilateral mammogram in 1220 221. This revealed a stable superior posterior asymmetric density right breast. Asymmetric density anterior left breast became less defined in spite of 3-D film. Ultrasound of the left breast was recommended. Ultrasound of the left breast was performed on the same date which was felt to be benign BIRADS 2. The films were reviewed in person with Dr. Farah. The plan is for repeat bilateral mammogram in 1 year. She had genetic testing performed on 030108 which was negative. 06-26-22 Bilateral mammogram on 04-20-23 BIRAD 2 Complaining of any new lumps masses or nodules of concern in either breast. She has not had any recent breast trauma or infection. Aneta model: 2.1% 5 year risk to develop breast cancer; 22% life time risk Have discussed chemoprevention at this time the patient is not interested. 04-29-22 She is not concerned about any lumps masses or nodules in either breast. She does have a dark nevus on her right upper chest. Bilateral mammogram 04-21-23 BIRAD 1 Aneta Risk: 5 year 2.3% 5 year 15.5% Caffeine: rare smoke: none Theophylline: Daily soy milk: twice a week Family history: mother: breast cancer 6 times, from bladder cancer, ovarian cancer, uterine cancer (did not have genetic testing done) father: bladder cancer maternal aunt: ovarian cancer at 40 cousin maternal side: at 21 with cancer ? 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 Plantars fasciitis Carpal tunnel disease Connective tissue disease anxiety/depression Sjogren syndrome Overnight syndrome Migraines insomnia high cholesterol uses a cane secondary to spondylosis/scoliosis/complete (left knee replacement has had 6 surgeries and 2 replacements on left knee, right knee 4 surgeries and a replacement) Social History: smoke: none alcohol: rare drugs: none - Constitutional Comment: hot flashes Constitutional: Denies chills, Denies fever - EENT Eyes: denies blurred vision, denies pain Ears: bilateral: tinnitus, deny: decreased hearing Ears, nose, mouth and throat: Reports headache, Denies sore throat - Breasts Breasts: bilateral: as per HPI - Cardiovascular Cardiovascular: Denies chest pain, Denies shortness of breath - Respiratory Respiratory: Denies cough - Gastrointestinal Gastrointestinal: Denies abdominal pain, Denies diarrhea, Denies nausea, Denies vomiting - Genitourinary (Female) Genitourinary: Denies dysuria, Denies hematuria - Menstruation Menstruation: Reports postmenopausal - Musculoskeletal Musculoskeletal: Reports as per HPI - Integumentary Integumentary: Denies pruritus, Denies rash - Neurological Neurological: Reports numbness, Denies weakness - Psychiatric Psychiatric: Reports anxiety, Reports depression - Endocrine Comment: weight gain Endocrine: Reports weight change - Hematologic/Lymphatic Comment: none - Allergic/Immunologic Allergic/Immunologic: Reports seasonal allergies Objective - Vital Signs Vital signs: Vital Signs Temp 98.6 F 04/29/23 13:29 Pulse 92 04/29/23 13:29 Resp 18 04/29/23 13:29 BP 107/73 04/29/23 13:29 Pulse Ox 95 04/29/23 13:29 FiO2 Intake & Output 04/28/23 04/29/23 04/29/23 18:59 06:59 18:59 Weight 92.986 kg - Constitutional General appearance: Present: cooperative - EENT Eyes: Present: EOMI ENT: Present: hearing grossly normal - Neck Neck: Present: normal ROM - Respiratory Respiratory: bilateral: CTA - Cardiovascular Heart sounds: normal: S1, S2 - Integumentary Integumentary Comment(s): dark nevis right upper chest Integumentary: Present: normal turgor - Psychiatric Psychiatric: Present: A&O x's 3, appropriate affect, intact judgment & insight - Additional findings Additional findings: Breast Exam: BRA: 40C inspection: Bilateral grade 2 ptosis Palpation: Right breast: Multi-positional exam fibrocystic changes no discrete dominant masses or nodules of concern Right axilla: No adenopathy of concern Left breast: Multi-positional exam fibrocystic changes no discrete dominant masses or nodules of concern Left axilla: No adenopathy of concern Assessment and Plan Assessment: Impression: fatty liver 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 bilateral mammogram in one year with physician exam at that time 2. declined chemoprophylaxis 3. Patient is going to stop using soy products; she understands this may or may not increase the risk 4. Resection dark nevus right upper chest CC: Dr. Ornelas, Dr. Aldridge
== END ==
LOC: WWCWWP 13:21
PROVIDERS: ATTEND Surgery
DX: N60.11 Diffuse cystic mastopathy of right breast (principal); N64.89 Other specified disorders of breast; K76.0 Fatty (change of) liver, not elsewhere classified; D22.9 Melanocytic nevi, unspecified; E78.00 Pure hypercholesterolemia, unspecified; F32.A Depression, unspecified; F41.9 Anxiety disorder, unspecified; G43.909 Migraine, unspecified, not intractable, without status migrainosus; M35.00 Sjogren syndrome, unspecified; G47.00 Insomnia, unspecified; M43.06 Spondylolysis, lumbar region; M72.2 Plantar fascial fibromatosis; G56.00 Carpal tunnel syndrome, unspecified upper limb; M35.9 Systemic involvement of connective tissue, unspecified; M41.9 Scoliosis, unspecified; G47.26 Circadian rhythm sleep disorder, shift work type; Z80.3 Family history of malignant neoplasm of breast; Z96.653 Presence of artificial knee joint, bilateral; Z88.6 Allergy status to analgesic agent; Z88.1 Allergy status to other antibiotic agents; Z91.018 Allergy to other foods; Z91.012 Allergy to eggs; Z91.041 Radiographic dye allergy status

== ENCOUNTER → 2023-05-19 | Outpatient (CLI) | payer MEDICARE ==
--- NOTE | 2023-05-19 08:54 | P.PCN ---
Date of Procedure: 05/19/23 Preoperative Diagnosis: dark nevis right anterior chest/neck Postoperative Diagnosis: same Procedure(s) Performed: Excision nevus right upper chest/neck Anesthesia: local Surgeon: Renae Cage Pathology: other (Skin lesion removed) Condition: stable Disposition: same day Indications for Procedure: Dark nevus/lesion right chest/lower neck Operative Findings: Nevus versus AV malformation Description of Procedure: Following informed consent the area of concern was prepped using chlorhexidine. 1% lidocaine was used to anesthetize the area of concern. Approximately 2 cc. of lidociane. Wide excision was performed. The incision was closed using 4-0 nylon suture. It was approximately 5 mm in size. The patient tolerated the procedure in stable condition. The specimen is sent to pathology. The patient will follow-up next week for suture removal. cc: Dr. Ornelas
[2023-05-19 09:55] VITALS: BP 94/69; PULSE 72; RESP 17; TEMP 97.8
== END ==
LOC: WWCWWP 07:53
PROVIDERS: ATTEND Surgery
DX: D22.5 Melanocytic nevi of trunk (principal); Z88.6 Allergy status to analgesic agent; Z88.1 Allergy status to other antibiotic agents; Z91.018 Allergy to other foods; Z91.012 Allergy to eggs; Z91.041 Radiographic dye allergy status
CPT/HCPCS: 88305

== ENCOUNTER → 2023-05-27 | Outpatient (CLI) | payer MEDICARE ==
--- NOTE | 2023-05-27 08:15 | P.PN ---
Progress Note - Text Progress Note Date: 05/27/23 Sade is status post excision of a dark nevus on her right upper chest/lower neck and 05-19-2023. Pathology revealed a benign hemangioma. She tolerated the procedure without difficulty. Examination: Incision clean and dry Impression: Patient doing well postoperative Bilateral mammogram in March 2024 with appointment at that time Patient to follow-up sooner any questions or concerns CC: Dr. Ornelas
[2023-05-27 08:20] VITALS: BP 96/62; PULSE 83; RESP 17; TEMP 98.7
== END ==
LOC: WWCWWP 07:48
PROVIDERS: ATTEND Surgery
DX: D18.01 Hemangioma of skin and subcutaneous tissue (principal); Z88.8 Allergy status to other drugs, medicaments and biological substances; Z88.1 Allergy status to other antibiotic agents; Z91.012 Allergy to eggs; Z91.018 Allergy to other foods

== ENCOUNTER → 2023-10-05 | Outpatient (CLI) | payer MEDICARE ==
[2023-10-05 14:52] LABS: Basophils # (A) 0.06 X 10*3/uL (0.00-0.10); Basophils % (A) 1.2 %; Eosinophils # (A) 0.25 X 10*3/uL (0.04-0.35); Eosinophils % (A) 4.9 %; HCT 44.3 % (37.2-46.3); HGB 14.5 g/dL (12.0-15.0); Lymphocytes # (A) 1.53 X 10*3/uL (0.90-5.00); Lymphocytes % (A) 30.1 %; MCH 30.7 pg (27.0-32.0); MCHC 32.7 g/dL (32.0-37.0); MCV 93.7 FL (80.0-97.0); Mean Platelet Volume 9.9 FL (9.5-12.2); Monocytes # (A) 0.48 X 10*3/uL (0.20-1.00); Monocytes % (A) 9.4 %; NRBC Per 100 WBC 0 X 10*3/uL (0.00-0.01); Neutrophils # (A) 2.76 X 10*3/uL (1.80-7.70); Neutrophils % (A) 54.2 %; Platelet Count 233 X 10*3/uL (140-440); RBC 4.73 X 10*6/uL (4.10-5.20); WBC 5.09 X 10*3/uL (4.50-10.00)
[2023-10-05 15:00] LABS: ALT 66 U/L (8-44); AST 43 U/L (13-35); Albumin 4.6 g/dL (3.8-4.9); Albumin/Globulin Ratio 1.92 Ratio (1.60-3.17); Alkaline Phosphatase 82 U/L (41-126); Blood Urea Nitrogen 17.6 mg/dL (9.0-27.0); Calcium 9.7 mg/dL (8.7-10.3); Carbon Dioxide 24.5 mmol/L (21.6-31.8); Chloride 106 mmol/L (96-109); Chol/HDL Ratio 4.12 Ratio; Globulin 2.4 g/dL (1.6-3.3); Glucose 110 mg/dL (70-110); LDL Cholesterol,Calculated 118.7 mg/dL (0.0-131.0); Sodium 142 mmol/L (135-145); Total Bilirubin 0.5 mg/dL (0.3-1.2)
== END | disposition home or self-care (01) ==
LOC: LABWHC1 11:02
PROVIDERS: ATTEND Internal Medicine Cardiovascular Disease
DX: E78.2 Mixed hyperlipidemia (principal); K76.0 Fatty (change of) liver, not elsewhere classified
CPT/HCPCS: 36415; 80053; 80061; 85025

== ENCOUNTER → 2023-10-15 | Outpatient (CLI) | payer MEDICARE ==
[2023-10-15 15:27] LABS: Basophils # (A) 0.07 X 10*3/uL (0.00-0.10); Basophils % (A) 1.2 %; Eosinophils # (A) 0.27 X 10*3/uL (0.04-0.35); Eosinophils % (A) 4.4 %; HCT 45.1 % (37.2-46.3); HGB 15.2 g/dL (12.0-15.0); Lymphocytes # (A) 1.94 X 10*3/uL (0.90-5.00); Lymphocytes % (A) 31.9 %; MCH 31.5 pg (27.0-32.0); MCHC 33.7 g/dL (32.0-37.0); MCV 93.6 FL (80.0-97.0); Monocytes # (A) 0.51 X 10*3/uL (0.20-1.00); Monocytes % (A) 8.4 %; NRBC Per 100 WBC 0 X 10*3/uL (0.00-0.01); Neutrophils # (A) 3.27 X 10*3/uL (1.80-7.70); Neutrophils % (A) 53.8 %; Platelet Count 234 X 10*3/uL (140-440); RBC 4.82 X 10*6/uL (4.10-5.20); RDW 12.9 % (11.5-14.5); WBC 6.08 X 10*3/uL (4.50-10.00)
[2023-10-15 15:38] LABS: BUN/Creat Ratio 26.44 Ratio (12.00-20.00); Blood Urea Nitrogen 23.8 mg/dL (9.0-27.0); Chloride 107 mmol/L (96-109); Chol/HDL Ratio 3.86 Ratio; Glucose 119 mg/dL (70-110); LDL Cholesterol,Calculated 104.4 mg/dL (0.0-131.0); Potassium 4.3 mmol/L (3.5-5.5); Sodium 143 mmol/L (135-145)
[2023-10-15 15:39] LABS: ALT 75 U/L (8-44); AST 43 U/L (13-35); Albumin 4.6 g/dL (3.8-4.9); Albumin/Globulin Ratio 1.92 Ratio (1.60-3.17); Alkaline Phosphatase 80 U/L (41-126); Calcium 9.7 mg/dL (8.7-10.3); Carbon Dioxide 25.5 mmol/L (21.6-31.8); Globulin 2.4 g/dL (1.6-3.3); Total Bilirubin 0.6 mg/dL (0.3-1.2)
== END | disposition home or self-care (01) ==
LOC: LABWHC1 11:20
PROVIDERS: ATTEND Internal Medicine
DX: Z00.00 Encounter for general adult medical examination without abnormal findings (principal); G43.909 Migraine, unspecified, not intractable, without status migrainosus; E55.9 Vitamin D deficiency, unspecified
CPT/HCPCS: 36415; 80053; 80061; 82306; 82607; 82746; 83735; 84443; 85025

== ENCOUNTER → 2023-10-18 | Outpatient (CLI) | payer MEDICARE ==
[2023-10-18 15:10] LABS: % Iron Saturation 27.33 (12.00-45.00); ALT 80 U/L (8-44); AST 49 U/L (13-35); Albumin 4.8 g/dL (3.8-4.9); Alkaline Phosphatase 83 U/L (41-126); Bilirubin, Conjugated <0.20 mg/dL (0.20-0.40); Bilirubin,Unconjugated >0.30 mg/dL (0.20-1.00); Blood Urea Nitrogen 17.2 mg/dL (9.0-27.0); Carbon Dioxide 25.9 mmol/L (21.6-31.8); Chloride 105 mmol/L (96-109); Globulin 2.4 g/dL (1.6-3.3); Glucose 126 mg/dL (70-110); Iron 88 UG/DL (50-170); Potassium 4.8 mmol/L (3.5-5.5); Sodium 143 mmol/L (135-145); Total Bilirubin 0.5 mg/dL (0.3-1.2); Total Iron Binding Capacity 322 UG/DL (228-460); Total Protein 7.2 g/dL (6.2-8.2)
[2023-10-18 15:33] LABS: Hepatitis A Antibody IgM Nonreactive (Nonreactive); Hepatitis B Core IgM Nonreactive (Nonreactive); Hepatitis B Surface Antigen Nonreactive (Nonreactive); Hepatitis C IgG Antibody Nonreactive (Nonreactive)
[2023-10-18 15:49] LABS: Ceruloplasmin 23.1 mg/dL (20.0-60.0)
[2023-10-19 05:57] LABS: EBV - VCA IgM <10.0 U/mL (<36.0)
== END | disposition home or self-care (01) ==
LOC: LABWHC1 11:38
PROVIDERS: ATTEND Internal Medicine
DX: R73.9 Hyperglycemia, unspecified (principal); R74.01 Elevation of levels of liver transaminase levels
CPT/HCPCS: 36415; 80053; 80074; 82103; 82248; 82390; 82525; 83036; 83516; 83540; 83550; 86039; 86645; 86665

== ENCOUNTER → 2023-10-21 | Outpatient (CLI) | payer MEDICARE ==
--- NOTE | 2023-10-21 11:26 | US ---
EXAMINATION TYPE: US liver DATE OF EXAM: 10/21/2023 COMPARISON: US CLINICAL INDICATION: Female, 58 years old with history of R74.01 ELEVATED TRANSAMINASE LEVEL; Elevate d LFT's TECHNIQUE: Multiple sonographic images of the right upper quadrant are obtained. FINDINGS: EXAM MEASUREMENTS: Liver Length: 19.0 cm Gallbladder Wall: 0.2 cm CBD: 0.5 cm Right Kidney: 10.6 x 4.3 x 5.3 cm Pancreas: 2mm panc duct, tail obscured by overlying bowel gas Liver: Enlarged, heterogeneous, difficult to penetrate, hypoechoic lesion adjacent to GB= 1.6 x 1.1 x 1.7 cm Gallbladder: wnl Evidence for sonographic Shirley's sign: No CBD: wnl Right Kidney: wnl IMPRESSION: 1. Moderate hepatomegaly and marked fatty infiltration . 2. Pancreatic tail obscured but normal appearing head and body of the pancreas. 3. Normal gallbladder. 4. Probable small hepatic cyst adjacent to the gallbladder.
== END | disposition home or self-care (01) ==
LOC: RADUSWWP 07:41
PROVIDERS: ATTEND Internal Medicine
DX: R74.01 Elevation of levels of liver transaminase levels (principal); R16.0 Hepatomegaly, not elsewhere classified
CPT/HCPCS: 76705

== ENCOUNTER → 2024-04-24 | Outpatient (CLI) | payer MEDICARE ==
--- NOTE | 2024-04-25 14:04 | MM ---
Reason for Exam: Screening (asymptomatic). Last screening mammogram was performed 12 month(s) ago. Patient History: Menarche at age 14. Patient has no children. Postmenopausal. 2012, Benign Cyst Aspiration on the left side. Benign Cyst Aspiration on the left side. Mother had breast cancer, age 50. Risk Values: Aneta 5 year model risk: 2.4%. NCI Lifetime model risk: 15.2%. Prior Study Comparison: 04/16/2021 Bilateral Diagnostic Mammogram, [facility]. 04/20/2022 Bilateral MG 3D screening mammo w/cad, [facility]. 04/21/2023 Bilateral MG 3D screening mammo w/cad, [facility]. Tissue Density: The breasts are heterogeneously dense, which may obscure small masses. Findings: Analyzed By CAD. The pattern is symmetrical. No significant interval change. Benign spherical calcifications within the left breast. No suspicious groups of microcalcifications, spiculated or lobular masses, architectural distortion or other secondary signs of malignancy are mammographically apparent. Overall Assessment: Benign, BI-RAD 2 Management: Screening Mammogram of both breasts in 1 year. A negative mammogram report should not preclude additional follow up of suspicious palpable abnormalities. Patient should continue monthly self breast exam. A clinical breast exam by your physician is recommended on an annual basis and results should be correlated with mammographic findings. Note on Aneta scores and lifetime risk: 1. A Aneta score greater than 3% is considered moderate risk. If this is the case, consider specialist referral to assess eligibility for a risk reducing agent. 2. If overall lifetime risk for the development of breast cancer is 20% or higher, the patient may qualify for future screening with alternating mammogram and breast MRI. [facility], , 04/25/2024 2:01 PM. Electronically signed and approved by: Wilfred Gray D.O. Radiologis
== END | disposition home or self-care (01) ==
LOC: RADMAMWWP 09:14
PROVIDERS: ATTEND Surgery
DX: Z12.31 Encounter for screening mammogram for malignant neoplasm of breast (principal); Z78.0 Asymptomatic menopausal state; Z80.3 Family history of malignant neoplasm of breast; R92.333 Mammographic heterogeneous density, bilateral breasts
CPT/HCPCS: 77063; 77067

== ENCOUNTER → 2024-05-05 | Outpatient (CLI) | payer MEDICARE ==
[2024-05-05 15:28] LABS: Chol/HDL Ratio 3.72 Ratio; LDL Cholesterol,Calculated 109.9 mg/dL (0.0-131.0)
[2024-05-05 15:33] LABS: ALT 74 U/L (8-44); AST 52 U/L (13-35); Albumin 4.2 g/dL (3.8-4.9); Albumin/Globulin Ratio 1.75 Ratio (1.60-3.17); Alkaline Phosphatase 80 U/L (41-126); BUN/Creat Ratio 20.38 Ratio (12.00-20.00); Blood Urea Nitrogen 16.3 mg/dL (9.0-27.0); Calcium 9.7 mg/dL (8.7-10.3); Carbon Dioxide 24.1 mmol/L (21.6-31.8); Chloride 103 mmol/L (96-109); Globulin 2.4 g/dL (1.6-3.3); Glucose 118 mg/dL (70-110); Potassium 4.9 mmol/L (3.5-5.5); Sodium 139 mmol/L (135-145); Total Bilirubin 0.6 mg/dL (0.3-1.2); Total Protein 6.6 g/dL (6.2-8.2)
[2024-05-05 22:45] LABS: Basophils # (A) 0.06 X 10*3/uL (0.00-0.10); Eosinophils # (A) 0.31 X 10*3/uL (0.04-0.35); HCT 45.7 % (37.2-46.3); HGB 14.8 g/dL (12.0-15.0); Lymphocytes # (A) 1.83 X 10*3/uL (0.90-5.00); Lymphocytes % (A) 29.4 %; MCH 30.6 pg (27.0-32.0); MCHC 32.4 g/dL (32.0-37.0); MCV 94.6 FL (80.0-97.0); Mean Platelet Volume 10.6 FL (9.5-12.2); Monocytes % (A) 9.6 %; NRBC Per 100 WBC 0 X 10*3/uL (0.00-0.01); Neutrophils % (A) 54.7 %; Platelet Count 169 X 10*3/uL (140-440); RBC 4.83 X 10*6/uL (4.10-5.20); RDW 13.1 % (11.5-14.5); WBC 6.22 X 10*3/uL (4.50-10.00)
== END | disposition home or self-care (01) ==
LOC: LABWHC1 10:17
PROVIDERS: ATTEND Internal Medicine
DX: E78.5 Hyperlipidemia, unspecified (principal); E55.9 Vitamin D deficiency, unspecified; K76.0 Fatty (change of) liver, not elsewhere classified; R73.9 Hyperglycemia, unspecified
CPT/HCPCS: 36415; 80053; 80061; 81596; 82306; 83036; 83735; 84443; 85025

== ENCOUNTER → 2024-05-05 | Outpatient (CLI) | payer MEDICARE | LOC: WWCWWP 09:24 | PROVIDERS: ATTEND Surgery | DX: Z53.9 Procedure and treatment not carried out, unspecified reason (principal) ==

== ENCOUNTER → 2024-06-22 | Outpatient (CLI) | payer MEDICARE ==
[2024-06-22 13:49] VITALS: BP 120/77; PULSE 86; RESP 17; TEMP 98.1
--- NOTE | 2024-06-22 14:15 | P.PN ---
Subjective Progress Note Date: 06/22/24 Principal diagnosis: fibrocystic breast 06-22-24 Surveillance fibrocystic breast changes Sade is a 55-year-old white female seen initially in consultation for Dr. Paloma Aldridge regarding a mammographic abnormality in her left breast. She underwent a bilateral mammogram on 03/13/2020 which revealed a nodular density in the outer margin of the left breast. A diagnostic mammogram of the left breast was performed on 560009. The questioned far posterior and lateral asymmetric density was not clearly reproduced and a precautionary six-month follow-up was recommended. The patient does not feel anything in her breast. She is not complaining of any nipple discharge or skin changes. She has no history of any trauma or infection in the breast. A repeat left breast mammogram was done on 09-16-20 which noted focal density left lateral breast posterior depth and felt to be BENIGN BIRAD 3. Bilateral mammogram in 122 221. This revealed a stable superior posterior asymmetric density right breast. Asymmetric density anterior left breast became less defined in spite of 3-D film. Ultrasound of the left breast was recommended. Ultrasound of the left breast was performed on the same date which was felt to be benign BIRADS 2. The films were reviewed in person with Dr. Farah. The plan is for repeat bilateral mammogram in 1 year. She had genetic testing performed on which was negative. 06-26-22 Bilateral mammogram on 04-20-23 BIRAD 2 Complaining of any new lumps masses or nodules of concern in either breast. She has not had any recent breast trauma or infection. Aneta model: 2.1% 5 year risk to develop breast cancer; 22% life time risk Have discussed chemoprevention at this time the patient is not interested. 04-29-22 She is not concerned about any lumps masses or nodules in either breast. She does have a dark nevus on her right upper chest. Bilateral mammogram 04-21-23 BIRAD 1 Aneta Risk: 5 year 2.3% 5 year 15.5% 06-22-24 5 year risk: 2.4% NCI lifetime risk: 15.2% fiborcystic breast disease, no new lumps, masses or nodules of concern bilateral mammogram on 04-24-24 BIRAD 2 Caffeine: rare smoke: none Theophylline: Daily soy milk: twice a week Family history: mother: breast cancer 6 times, from bladder cancer, ovarian cancer, uterine cancer (did not have genetic testing done) father: bladder cancer maternal aunt: ovarian cancer at 40 cousin maternal side: at 21 with cancer ? 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 Plantars fasciitis Carpal tunnel disease Connective tissue disease anxiety/depression Sjogren syndrome Overnight syndrome Migraines insomnia high cholesterol uses a cane secondary to spondylosis/scoliosis/complete (left knee replacement has had 6 surgeries and 2 replacements on left knee, right knee 4 surgeries and a replacement) Social History: smoke: none alcohol: rare drugs: none - Constitutional Comment: hot flashes Constitutional: Denies chills, Denies fever - EENT Eyes: denies blurred vision, denies pain Ears: bilateral: tinnitus, deny: decreased hearing Ears, nose, mouth and throat: Reports headache, Denies sore throat - Breasts Breasts: bilateral: as per HPI - Cardiovascular Cardiovascular: Denies chest pain, Denies shortness of breath - Respiratory Respiratory: Denies cough - Gastrointestinal Gastrointestinal: Denies abdominal pain, Denies diarrhea, Denies nausea, Denies vomiting - Genitourinary (Female) Genitourinary: Denies dysuria, Denies hematuria - Menstruation Menstruation: Reports postmenopausal - Musculoskeletal Musculoskeletal: Reports as per HPI - Integumentary Integumentary: Denies pruritus, Denies rash - Neurological Neurological: Reports numbness, Denies weakness - Psychiatric Psychiatric: Reports anxiety, Reports depression - Endocrine Comment: weight gain Endocrine: Reports weight change - Hematologic/Lymphatic Comment: none - Allergic/Immunologic Allergic/Immunologic: Reports seasonal allergies Objective - Vital Signs Vital signs: Vital Signs Temp 98.1 F 06/22/24 13:47 Pulse 86 06/22/24 13:47 Resp 17 06/22/24 13:47 BP 120/77 06/22/24 13:47 Pulse Ox 99 06/22/24 13:47 FiO2 Intake & Output 06/21/24 06/22/2425 18:59 06:59 18:59 Weight 92.986 kg - Constitutional General appearance: Present: cooperative - EENT Eyes: Present: EOMI ENT: Present: hearing grossly normal - Neck Neck: Present: normal ROM - Respiratory Respiratory: bilateral: CTA - Cardiovascular Heart sounds: normal: S1, S2 - Integumentary Integumentary: Present: normal turgor - Psychiatric Psychiatric: Present: A&O x's 3, appropriate affect, intact judgment & insight - Additional findings Additional findings: Breast Exam: BRA: 40C inspection: Bilateral grade 2 ptosis Palpation: Right breast: Multi-positional exam fibrocystic changes no discrete dominant masses or nodules of concern Right axilla: No adenopathy of concern Left breast: Multi-positional exam fibrocystic changes no discrete dominant masses or nodules of concern Left axilla: No adenopathy of concern Assessment and Plan Assessment: Impression: fatty liver 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 bilateral mammogram in one year with physician exam at that time 2. Patient is going to stop using soy products; she understands this may or may not increase the risk CC: Dr. Ornelas
== END ==
LOC: WWCWWP 12:59
PROVIDERS: ATTEND Surgery
DX: N60.19 Diffuse cystic mastopathy of unspecified breast (principal); K76.0 Fatty (change of) liver, not elsewhere classified; M47.816 Spondylosis without myelopathy or radiculopathy, lumbar region; M72.2 Plantar fascial fibromatosis; G56.00 Carpal tunnel syndrome, unspecified upper limb; M35.9 Systemic involvement of connective tissue, unspecified; F41.9 Anxiety disorder, unspecified; M35.00 Sjogren syndrome, unspecified; G47.36 Sleep related hypoventilation in conditions classified elsewhere; G43.909 Migraine, unspecified, not intractable, without status migrainosus; E78.00 Pure hypercholesterolemia, unspecified; Z80.3 Family history of malignant neoplasm of breast; Z88.6 Allergy status to analgesic agent; Z88.1 Allergy status to other antibiotic agents; Z91.018 Allergy to other foods; Z91.012 Allergy to eggs; Z91.041 Radiographic dye allergy status

== ENCOUNTER → 2024-06-27 | Outpatient (CLI) | payer MEDICARE ==
[2024-06-27 09:54] VITALS: BP 113/69; PULSE 85; RESP 17; TEMP 98.3
--- NOTE | 2024-06-27 12:31 | P.HPOB ---
History of Present Illness H&P Date: 06/27/24 Chief Complaint: Patient is here for her routine gynecologic exam. This is a 58-year-old G0 with an LMP of 2018. The patient is here to reestablish with this office. She previously saw Dr. Aldridge for her gynecologic care until Dr. Aldridge retired about 1 year ago. The patient is without gynecologic complaints and denies any postmenopausal bleeding. The patient had genetic cancer testing through Dr. Martin Valdez on 04/09/2020. No genetic variants were discovered in all 83 genes tested. Review of Systems The patient's weight has been stable over the last year. She denies respiratory, cardiac, or G.I. problems. Past Medical History Past Medical History: GERD/Reflux, Liver Disease Additional Past Medical History / Comment(s): hx. heart murmur, migraine headaches, has growth on spleen-dr monitoring, Reynaud's, Sjogren's. Prediabetes and fatty liver. Osteopenia. 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 History of Any Multi-Drug Resistant Organisms: None Reported Past Surgical History: Joint Replacement, Orthopedic Surgery Additional Past Surgical History / Comment(s): nasal fx. repair, arthroscopy knees. Knee replacement, partial right knee replacement. Colonoscopy 2022(next after 5yr). Past Anesthesia/Blood Transfusion Reactions: No Reported Reaction Additional Past Anesthesia/Blood Transfusion Reaction / Comment(s): has woken up during knee surgery Past Psychological History: Anxiety Smoking Status: Never smoker Past Alcohol Use History: Occasional (4 drinks per month.) Past Drug Use History: None Reported Additional History: She has been since 1988 and is retired. - Past Family History Mother Family Medical History: Cancer Additional Family Medical History / Comment(s): ovarian/uterine,breast x6,bladder [place] Father Family Medical History: Cancer Additional Family Medical History / Comment(s): melanoma,bladder CA Brother(s) Family Medical History: Diabetes Mellitus Additional Family Medical History / Comment(s): A cousin had pancreatic cancer. Medications and Allergies Home Medications Medication Instructions Recorded Confirmed Type ALPRAZolam [Xanax] 0.5 mg PO DAILY PRN 02/16/18 06/27/24 History Hydrocodone/Acetaminophen [[place] 1 tab PO TID PRN 02/16/18 06/27/24 History 10-325 Tablet] Sertraline [Zoloft] 100 mg PO QAM 02/16/18 06/27/24 History Baclofen [Lioresal] 20 mg PO BID PRN 03/28/20 06/27/24 History Rosuvastatin Calcium [Crestor] 10 mg PO HS 09/20/20 06/27/24 History traZODone HCL [Desyrel] 50 mg PO HS 04/05/23 06/27/24 History Allergies Allergy/AdvReac Type Severity Reaction Status Date / Time aspirin Allergy swelling,ringing Verified 06/27/24 09:50 in ears azithromycin Allergy Unknown Verified 06/27/24 09:50 [From Zithromax Z-Shola] corn Allergy Swelling Verified 06/27/24 09:50 egg Allergy Swelling Verified 06/27/24 09:50 Iodinated Contrast Media Allergy Rash/Hives Verified 06/27/24 09:50 [Iodinated Contrast Media - IV Dye] tomato Allergy Swelling Verified 06/27/24 09:50 wheat Allergy Swelling Verified 06/27/24 09:50 Exam Vital Signs Temp Pulse Resp BP Pulse Ox 06/27/24 09:51 98.3 F 85 17 113/69 98 Intake and Output 06/26/24 06/27/24 06/27/24 22:59 06:59 14:59 Other: Weight 94.801 kg Height 5 feet 8 inches, weight 209 pounds, BMI 31.8. This is a well-developed well-nourished white female who is alert and oriented times 3 in no acute distress. HEENT: Within normal limits. NECK: Supple without mass or thyromegaly. CHEST AND LUNGS: Clear to auscultation. HEART: Regular rate and rhythm. BREASTS: Are without mass or discharge. AXILLARY EXAM: Negative for adenopathy. BACK: Negative for CVA tenderness. ABDOMEN: Soft, nontender, without palpable masses. PELVIC EXAM: Normal external genitalia with mild atrophy. Cervix and vagina appear normal with mild atrophy. There is no unusual discharge. There is no evidence of prolapse. The uterus is midposition, nongravid size and nontender. There are no palpable adnexal masses or tenderness. RECTAL EXAM: Rectovaginal exam is negative for mass or tenderness and is negative for occult blood. EXTREMITIES: Nontender. IMPRESSION: 1. 58-year-old menopausal female with normal gynecologic exam. 2. Family history of breast, bladder, uterine, and ovarian cancer in her mother. Cancer genetic testing done in 2019 was negative and this included testing for BRCA 1 and 2. 3. History of osteopenia. PLAN: 1. Pap smear cotest performed. 2. Self breast awareness was discussed with the patient. We have also discussed symptoms associated with inflammatory breast cancer. 3. Screening mammograms have been done through Dr. Martin Valdez. This will be due after 04/24/25. 4. Osteoporosis prevention was discussed. I have stressed the importance of adequate calcium, vitamin D and regular exercise. Recommended amounts of calcium and vitamin D were also discussed. We will plan on repeating the bone density test next year. 5. I recommended yearly pelvic ultrasound because of her mother's history of ovarian cancer. The order slip was given to the patient for this. 6. I have recommended stopping alcohol use because of her history of fatty liver and elevated ALT testing. 7. She was advised to return in one year for her annual well woman exam and as needed.
== END ==
LOC: WWCWWP 09:37
PROVIDERS: ATTEND Obstetrics & Gynecology
DX: N95.1 Menopausal and female climacteric states (principal); Z80.3 Family history of malignant neoplasm of breast; Z88.6 Allergy status to analgesic agent; Z88.1 Allergy status to other antibiotic agents; Z91.018 Allergy to other foods; Z91.012 Allergy to eggs; Z91.041 Radiographic dye allergy status

== ENCOUNTER → 2024-07-10 | Outpatient (CLI) | payer MEDICARE ==
--- NOTE | 2024-07-10 16:05 | US ---
EXAMINATION TYPE: US pelvis complete transvag DATE OF EXAM: 07/10/2024 COMPARISON: US 2018 CLINICAL INDICATION: Female, 59 years old with history of Z80.41 FAMILY HX OF OVARIAN CA; Family hist ory of ovarian cancer- pt states mother TECHNIQUE: Transvaginal (TV) and Transabdominal (TA) . Transabdominal grayscale sonographic images of the pelvis were acquired. Transvaginal sonographic im ages were medically necessary to better assess the following anatomy: TV ordered by physician Doppler imaging: Not performed. FINDINGS: Date of LMP: Unknown- pt is post menopausal EXAM MEASUREMENTS: Uterus: 7.4 x 3.2 x 4.4 cm Endometrial Stripe: 0.3 cm Right Ovary: Not visualized due to bowel gas. Left Ovary: 2.0 x 1.7 x 1.4 cm 1. Uterus: Retroverted Heterogeneous with 2 solid lesions within uterus 1)- anterior fundus= 1.5 x 1.5 x 1.3 cm 2)- posterior fundus= 1.5 x 1.4 x 1.6 cm 2. Endometrium: wnl 3. Right Ovary: Obscured by overlying bowel gas 4. Left Ovary: wnl 5. Bilateral Adnexa: wnl 6. Posterior cul-de-sac: wnl IMPRESSION: Uterine leiomyomatous change. O-RADS 2021 [email or web address] [facility], , 07/10/2024 4:03 PM
--- NOTE | 2024-07-11 17:09 | P.PN ---
Progress Note - Text Progress Note Date: 07/11/24 OUTPATIENT FOLLOW-UP NOTE TEST(S)/RESULTS: Pelvic ultrasound done on 07/10/2024 shows 2 fundal fibroids with the largest measuring 1.6 cm and another measuring 1.5 cm. There are no ovarian masses noted. METHOD OF NOTIFICATION: The patient was notified of these results by phone on 07/11/2024. PATIENT COMMENTS: She is to happy to hear these results DIAGNOSIS: Small uterine fibroids which seems smaller than previous measurements. No ovarian masses. DISCUSSION: Because of her family history of ovarian cancer in her mother, we will continue yearly pelvic ultrasounds. PLAN: As above.
== END | disposition home or self-care (01) ==
LOC: RADUSWWP 15:08
PROVIDERS: ATTEND Obstetrics & Gynecology
DX: D25.9 Leiomyoma of uterus, unspecified (principal); Z80.41 Family history of malignant neoplasm of ovary
CPT/HCPCS: 76830; 76856

== ENCOUNTER → 2024-11-15 | Outpatient (CLI) | payer MEDICARE ==
[2024-11-15 19:32] LABS: ALT 72 U/L (8-44); AST 47 U/L (13-35); Albumin 4.3 g/dL (3.8-4.9); Albumin/Globulin Ratio 1.72 Ratio (1.60-3.17); Alkaline Phosphatase 76 U/L (41-126); Anion Gap 12.30 mmol/L (4.00-12.00); BUN/Creat Ratio 24.00 Ratio (12.00-20.00); Blood Urea Nitrogen 19.2 mg/dL (9.0-27.0); Calcium 9.8 mg/dL (8.7-10.3); Carbon Dioxide 26.7 mmol/L (21.6-31.8); Chloride 103 mmol/L (96-109); Globulin 2.5 g/dL (1.6-3.3); Glucose 102 mg/dL (70-110); Potassium 4.6 mmol/L (3.5-5.5); Sodium 142 mmol/L (135-145); Total Protein 6.8 g/dL (6.2-8.2)
[2024-11-15 20:01] LABS: Basophils # (A) 0.06 X 10*3/uL (0.00-0.10); Basophils % (A) 1.0 %; Eosinophils # (A) 0.19 X 10*3/uL (0.04-0.35); Eosinophils % (A) 3.3 %; HCT 44.2 % (37.2-46.3); HGB 14.6 g/dL (12.0-15.0); Immature Grans, Automated 0.30 %; Lymphocytes # (A) 1.59 X 10*3/uL (0.90-5.00); Lymphocytes % (A) 27.4 %; MCH 31.4 pg (27.0-32.0); MCHC 33.0 g/dL (32.0-37.0); MCV 95.1 FL (80.0-97.0); Monocytes # (A) 0.56 X 10*3/uL (0.20-1.00); Monocytes % (A) 9.7 %; NRBC Per 100 WBC 0 X 10*3/uL (0.00-0.01); Neutrophils # (A) 3.38 X 10*3/uL (1.80-7.70); Neutrophils % (A) 58.3 %; Platelet Count 227 X 10*3/uL (140-440); RBC 4.65 X 10*6/uL (4.10-5.20); RDW 13.1 % (11.5-14.5); WBC 5.80 X 10*3/uL (4.50-10.00)
== END | disposition home or self-care (01) ==
LOC: LABWHC1 12:52
PROVIDERS: ATTEND Internal Medicine Gastroenterology
DX: K76.0 Fatty (change of) liver, not elsewhere classified (principal)
CPT/HCPCS: 36415; 80053; 85025